=== PATIENT | female | born 1945 | race Hispanic/Latino ===

== ENCOUNTER → 2016-12-20 | Outpatient (CLI) | payer MEDICAID, MEDICARE | END | disposition home or self-care (01) | LOC: GMAM 14:01 | PROVIDERS: ATTEND Family Medicine | DX: N39.0 Urinary tract infection, site not specified (principal) ==

== ENCOUNTER 2016-12-24 17:11 | Observation (INO) | payer MEDICARE ==
--- NOTE | 2016-12-24 17:34 | ED.PDOC ---
History of Present Illness - General Chief Complaint: Neuro Symptoms/Deficits Stated Complaint: confusion & neck pain Time Seen by Provider: 12/24/16 17:12 Source: patient, RN notes reviewed, Vital Signs reviewed, family Exam Limitations: no limitations - History of Present Illness Initial Comments: Daughter reports she noticed her mother was confused this afternoon. Can't get out the words she wants to say. Patient is c/o L sided neck pain for a while, unclear how long. Patient can't remember her birthday. Daughter reports this happened once before and at that time her blood sugar was really high. Aside from the neck pain she has no other physical complaints. Timing/Duration: 1-3 hours Severity: moderate Improving Factors: nothing Worsening Factors: nothing Associated Symptoms: denies symptoms Allergies/Adverse Reactions: Allergies NO KNOWN ALLERGY Allergy (Unverified 01/09/13 00:32) Home Medications: Ambulatory Orders Amlodipine Besylate 10 mg PO DAILY 12/24/16 Glipizide 5 mg PO DAILY 12/24/16 HYDROcodone 10MG/APAP 325MG [[place] 10/325] 1 ea PO PRN PRN 12/24/16 Lidocaine 5 % EX PRN PRN 12/24/16 Metformin HCl [Metformin HCl ER] 500 mg PO BID 12/24/16 Omeprazole 20 mg PO DAILY 12/24/16 Potassium Chloride Microencaps [Klor-Con M20] 20 meq PO DAILY 12/24/16 Raloxifene HCl [Raloxifene Hydrochloride] 60 mg PO DAILY 12/24/16 SAXaglipitin [Onglyza] 5 mg PO DAILY 12/24/16 Sulfamethoxazole-Trimethoprim [Bactrim Ds 800-160 mg] 1 tab PO BID 12/24/16 Tramadol HCl 50 mg PO PRN PRN 12/24/16 Review of Systems - Review of Systems Constitutional: States: no symptoms reported, malaise, weakness. Denies: chills , diaphoresis, fever - but does have temp >101 here EENTM: States: no symptoms reported Respiratory: States: no symptoms reported. Denies: cough, orthopnea, short of breath, stridor Cardiology: States: no symptoms reported. Denies: chest pain, palpitations, syncope Gastrointestinal/Abdominal: States: no symptoms reported. Denies: abdominal pain, nausea, vomiting Genitourinary: States: no symptoms reported. Denies: dysuria, frequency, hematuria Musculoskeletal: States: neck pain - on left side Skin: States: no symptoms reported Neurological: States: other - confusion. Denies: headache, numbness, paresthesia Endocrine: States: no symptoms reported Past Medical History (General) - Patient Medical History Hx Hypertension: Yes - medicated Family Medical History - Family History Mother Family History: Unknown Physical Exam - Physical Exam General Appearance: Alert, Comfortable, No apparent distress, Well Developed, Well Groomed, Well Hydrated, Well Nourished Eye Exam: bilateral normal Ears, Nose, Throat: hearing grossly normal, normal ENT inspection, normal pharynx Neck: full range of motion, supple, tender lateral - mildly tender L side of neck Respiratory: chest non-tender, no respiratory distress, no accessory muscle use , crackles - bilateral bases Cardiovascular/Chest: no edema, no gallop, no JVD, no murmur, tachycardia Gastrointestinal/Abdominal: normal bowel sounds, non tender, soft, no organomegaly, no pulsatile mass Back Exam: normal inspection, no CVA tenderness, no vertebral tenderness Extremity: normal range of motion, non-tender, normal inspection, no pedal edema 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 She is getting a 1L NS bolus. Will give 9U of reg insulin. Patient reports that she started Bactrim DS yesterday for a urinary tract infection. She saw her doctor on Tuesday. - Results/Orders Results/Orders: Laboratory Tests 12/24/16 12/24/16 12/24/16 17:35 17:50 19:10 WBC 10.3 RBC 4.29 Hgb 11.4 L Hct 35.1 L MCV 81.7 MCH 26.5 L MCHC 32.5 L RDW 16.0 H Plt Count 294 MPV 7.9 Absolute Neuts (auto) 7.90 H Absolute Lymphs (auto) 1.60 Absolute Monos (auto) 0.60 Absolute Eos (auto) 0.00 Absolute Basos (auto) 0.10 Neutrophils % 77.3 Lymphocytes % 16.0 L Monocytes % 5.8 Eosinophils % 0.0 L Basophils % 0.9 Sodium 129 L Potassium 4.1 Chloride 98 L Carbon Dioxide 23 Anion Gap 12.1 BUN 15 Creatinine 1.02 BUN/Creatinine Ratio 14.7 POC Glucose 275 H Random Glucose 265 H Serum Osmolality 269.0 L Calcium 8.9 Total Bilirubin 0.3 AST 19 ALT 13 Alkaline Phosphatase 51 Serum Total Protein 7.2 Albumin 3.2 Globulin 4.0 H Albumin/Globulin Ratio 0.8 L Urine Color Yellow Urine Appearance Clear Urine pH 6.5 Ur Specific Van 1.020 Urine Protein 30 Urine Glucose (UA) 100 H Urine Ketones Negative Urine Blood Negative Urine Nitrite Negative Urine Bilirubin Negative Urine Urobilinogen 1.0 Ur Leukocyte Esterase Trace H Urine RBC 0 Urine WBC 1-3 Ur Epithelial Cells 1-3 Urine Bacteria 1+ Urine Mucus Trace Departure - Departure Clinical Impression: Altered mental status, Hyponatremia, Urinary tract infection Time of Disposition: 20:22 Disposition: Admit Patient Condition: Fair Home Medications: Ambulatory Orders Amlodipine Besylate 10 mg PO DAILY 12/24/16 Glipizide 5 mg PO DAILY 12/24/16 HYDROcodone 10MG/APAP 325MG [[place] 10/325] 1 ea PO PRN PRN 12/24/16 Lidocaine 5 % EX PRN PRN 12/24/16 Metformin HCl [Metformin HCl ER] 500 mg PO BID 12/24/16 Omeprazole 20 mg PO DAILY 12/24/16 Potassium Chloride Microencaps [Klor-Con M20] 20 meq PO DAILY 12/24/16 Raloxifene HCl [Raloxifene Hydrochloride] 60 mg PO DAILY 12/24/16 SAXaglipitin [Onglyza] 5 mg PO DAILY 12/24/16 Sulfamethoxazole-Trimethoprim [Bactrim Ds 800-160 mg] 1 tab PO BID 12/24/16 Tramadol HCl 50 mg PO PRN PRN 12/24/16 Decision To Admit - Decistion To Admit Decision to Admit Reason: Admit from ER
[2016-12-24] MEDS ORDERED: SODIUM CHLORIDE 0.9% 1000ML 1,000 ML IVS ONE (17:40)
--- NOTE | 2016-12-24 18:12 | RAD ---
EXAM: Chest,2 Views CLINICAL INDICATION: 71-year-old female with fever. TECHNIQUE: Two-view, PA and lateral projections of the chest were obtained. COMPARISON: 03/21/2013. FINDINGS: Stable cardiac and mediastinal silhouette. Heart size is normal. Tortuous atherosclerotic thoracic aorta. Lungs are clear without focal opacity, pneumothorax or pleural effusions. The visualized bones are within normal limits. IMPRESSION: No acute cardiopulmonary abnormalities. Electronically signed by: Priscilla Padron MD 12/24/2016 6:10 PM CDT
[2016-12-24] MEDS ORDERED: INSULIN, REG.(HUMAN) 100 U/ML VIAL IV ONE (18:20)
--- NOTE | 2016-12-24 19:08 | CT ---
EXAM DESCRIPTION: Head CLINICAL HISTORY: Altered mental status COMPARISON: None Available. TECHNIQUE: Contiguous axial images of the brain were obtained without the administration of intravenous contrast. FINDINGS: There is no acute intracranial hemorrhage or mass effect. Areas of low attenuation in the periventricular and subcortical white matter are nonspecific but suggestive of small vessel disease. There is generalized atrophy. Ventricular system is within normal limits. There is adequate balderas-white matter differentiation. There is no skull fracture. The visualized paranasal sinuses and mastoid air cells are within normal limits. IMPRESSION: No acute intracranial abnormalities. Electronically signed by: Henry Goode MD 12/24/2016 7:07 PM CDT
--- NOTE | 2016-12-24 20:19 | HP ---
SUPERVISING PHYSICIAN: Tigre Gaines MD CHIEF COMPLAINT: Confusion with neck pain. HISTORY OF PRESENT ILLNESS: Ms. Awan is a 70 year-old female who was brought to the Emergency Department by her daughter after she noticed that her mother was confused this afternoon. The daughter noticed that she could not get her words that she wanted to say. Daughter also notes that this episode occurred earlier in the week but went away without any concern. The patient was recently treated for a urinary tract infection on the , started on Bactrim with culture results showing a Klebsiella pneumonia that was sensitive to Bactrim. The daughter reports that this has happened in the past in regards to the slight confusion and at that time it was because it was because her blood sugar was really high. The patient notes that she has had neck pain for several days after waking up from sleep and notes that it is reproducible with rotation of the neck and palpitations of the muscles on the right side of the neck. Laboratory studies completed in the Emergency Department showed the patient to have a normal white count at 10.3, hemoglobin 11.4, hematocrit 35.1, differential showed to be within normal limits. Chemistries showed sodium of 129, glucose elevated at 275 and correction for glucose showed a corrected sodium of 131. Liver function studies shows to be all within normal limits. Lactic acid 2.1. BUN 15, creatinine 1.0. Repeat urine showed 100 glucose with trace of leukoesterase on dipstick with 1+ bacteria, 1 to 3 WBCs, 1 to [address] head was completed and per radiology interpretation was noted there was no acute intracranial abnormalities. She also had a chest x-ray which showed no acute cardiopulmonary abnormalities per radiology interpretation. Of note, her vital signs on admission, she was running 101.4 temperature with heart rate of 118 but saturation was 100% on lesley air at rest with a blood pressure of 131/42. The patient denies any previous fevers or any ill contacts within the last week. Given the degree of confusion state earlier in the Emergency Room and 101.4 fever with the patient being diabetic and having recently been started on Bactrim for underlying urinary tract infection, there are now concerns that the patient has failed treatment in regards to the urinary tract infection. Therefore, she will be admitted to the medical/surgical floor for continued treatment and evaluation. She was admitted in stable condition. PAST MEDICAL HISTORY: 1. Type 2 diabetes mellitus on insulin. 2. Hypertension. 3. Osteoporosis. 4. Gastroesophageal reflux disease. PAST SURGICAL HISTORY: 1. Right knee scope. 2. Cholecystectomy. 3. Left cataract removal. CURRENT MEDICATIONS: 1. Tramadol 50 mg as needed. 2. Bactrim DS, 1 tablet twice a day, started on December 20 for 7 days. 3. Onglyza 5 mg daily. 4. Raloxifene 60 mg daily. 5. Potassium chloride 20 mEq daily. 6. Omeprazole 20 mg daily. 7. Metformin 500 mg twice a day 8. [place] 10/325, 1 every 4 hours p.r.n. for pain. 9. Glipizide 5 mg daily 10. Amlodipine 10 mg daily. ALLERGIES: No known drug allergies. FAMILY HISTORY: Mother is from colon cancer and father from stomach cancer. SOCIAL HISTORY: The patient lives in [place]. 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 She is . She denies smoking or any alcohol or illicit drug use. REVIEW OF SYSTEMS: CONSTITUTIONAL: She denied any chills, diaphoresis, fever but noted a fever of 101 in the Emergency Room. HEENT: Denies any significant symptoms. RESPIRATORY: Denies cough orthopnea, shortness of breath or stridors. CARDIOVASCULAR: Denies chest pain, palpitations or syncopal episodes. GASTROINTESTINAL: Denies abdominal pain, nausea, vomiting, diarrhea or constipation. GENITOURINARY: Recently being treated for urinary tract infection, was apparently asymptomatic and currently denies any dysuria, increased frequency or hematuria. MUSCULOSKELETAL: As noted in history of present illness. Muscle pain to the left side of the neck. NEUROLOGICAL: As noted in history of present illness. She has slight confusional state that resolved without intervention. Denies headaches, numbness or paresthesias. PHYSICAL EXAMINATION: VITAL SIGNS: Initial temperature on admission was 101.4, pulse 118, blood pressure 131/42, respirations 16, 02 saturation 100% on room air. GENERAL: On admission to the medical/surgical floor, the patient was alert and oriented x3 demonstrating no confusion and she was without any obvious distress. HEENT: Tympanic membranes clear bilaterally. Oropharynx pink and moist without any lesion. NECK: No jugular venous distention noted. Neck supple, full range of motion, tender on the lateral aspect medially on the left side. CHEST: Essentially clear to auscultation, just some faint crackles to the bilateral bases. CARDIOVASCULAR: Heart regular rate and rhythm with no appreciable murmurs, rubs, or gallops. ABDOMEN: Soft, non-tender, positive bowel sounds. EXTREMITIES: No cyanosis, clubbing, or edema. NEUROLOGIC: Cranial nerves II through XII grossly intact. Facial features are symmetrical. Extraocular movements within normal limits. No nystagmus. She is alert and oriented x3 but in the Emergency Room apparently was only oriented to person and place but not date. LABORATORY: White count normal at 10.3, hemoglobin 11.4, hematocrit 35.1, platelet count 284,000, differential within normal limits. Chemistries showed sodium 129 but corrected for glucose of 275, was 131, potassium 4.1, BUN 15, creatinine 1.0. Lactic acid 2.1. Liver function studies showed to be within normal limits. Urinalysis 100 of glucose with trace of leukoesterase. MICROSCOPIC: 1+ bacteria, 1 to 2 epithelials, 1 to 3 WBC, trace mucus. MICROBIOLOGY: Blood cultures pending. She did have a urine culture on 12/20 that final culture results showed a Klebsiella pneumonia with a sensitivity patter showed sensitive to everything except ampicillin. RADIOLOGY: Chest x-ray in Emergency Room showed no acute cardiopulmonary abnormalities per radiology interpretation. She also had a CT of the head and per radiology interpretation showed no acute intracranial abnormalities. ASSESSMENT: 1. Acute confusional state possibly related to underlying urinary tract infection with patient being febrile on admission. 2. Febrile illness possibly related to failure to respond to treatment for underlying urinary tract infection that showed a Klebsiella pneumonia with patient having been started on Bactrim on the . 3. Diabetes mellitus type 2 poorly controlled on insulin therapy. 4. Hypertension. 5. Gastroesophageal reflux disease. 6. Osteoporosis. 7. Mild dehydration likely secondary to poorly controlled diabetes and poor oral intake over the last several days with underlying urinary tract infection. PLAN: The patient will be admitted to the hospital for continuation of treatment and evaluation given that she had a short episode of confusion but no acute findings on CT and patient being completely oriented when she was admitted to the medical/surgical floor. We will control her blood sugars with sliding scale, start her back on her home medication regimen once verified. We will treat with Tylenol for the fevers and closely monitor blood cultures and repeat urinalysis. We will go ahead and continue with antibiotic coverage with Bactrim starting tomorrow after we have time to evaluate and reculture urine and allow her to complete the therapy as previously ordered. Will do every 4 hours neuro checks and repeat laboratory studies in the morning as well as a chest x-ray. Will anticipate length of stay to be 2 to 3 days. Until the , we will continue to monitor the patient closely until discharge. Once discharged, the patient will need close clinical followup with her primary care physician, Dr. Patino. #[id number] [facility]
[2016-12-24] MEDS ORDERED: INSULIN, REG.(HUMAN) 100 U/ML VIAL ONE (20:21)
[2016-12-24] MEDS ORDERED: ACETAMINOPHEN 325 MG TAB PO PRN (21:15)
[2016-12-24] MEDS ORDERED: DEXTROSE 50% 25 GM/50 ML SYG IV PRN (21:15)
[2016-12-24] MEDS ORDERED: GLUCAGON INJ 1 MG VIAL SUBCU PRN (21:15)
[2016-12-24] MEDS ORDERED: KCL 20 MEQ/NS 1,000 ML IVS PRN (21:19)
[2016-12-24] MEDS ORDERED: IV SET AND CAP CHANGE INJ INJ SCH (21:30)
[2016-12-24] MEDS: SODIUM CHLORIDE 0.9% (FLUSH) 10 ML SYG IV PRN (21:55)
[2016-12-25] MEDS ORDERED: PANTOPRAZOLE SODIUM IV 40 MG VIAL IV ONE (00:32)
[2016-12-25] MEDS ORDERED: SODIUM CHLORIDE 0.9% 10 ML VIAL ONE (00:37)
[2016-12-25] MEDS ORDERED: CALCIUM CARBONATE (ANTACID) 500 MG CHEWABLE TAB PO ONE (00:38)
[2016-12-25] MEDS: SODIUM CHLORIDE 0.9% (FLUSH) 10 ML SYG IV PRN (00:41)
[2016-12-25] MEDS: CALCIUM CARBONATE (ANTACID) 500 MG CHEWABLE TAB PO PRN ×2 (00:42→11:44)
[2016-12-25] MEDS ORDERED: CYCLOBENZAPRINE HCL 5 MG TAB PO PRN (01:23)
[2016-12-25] MEDS ORDERED: HYDROcodone 10MG/APAP 325MG 1 EA TAB ONE (04:21)
[2016-12-25] MEDS: HYDROcodone 10MG/APAP 325MG 1 EA TAB PO PRN ×2 (05:22→11:40)
--- NOTE | 2016-12-25 07:21 | RAD ---
EXAM: Two view chest. INDICATION: Chest pain. COMPARISON: Chest x-ray: 12/24/2016. FINDINGS: Cardiac silhouette: Unremarkable. Linda: Unremarkable. Lobar consolidation: None. Pleural effusion: None. Pneumothorax: None. Other: None. Bones: Unremarkable. Other: None. IMPRESSION: 1. No acute cardiopulmonary process. Electronically signed by: Cleveland Betts MD 12/25/2016 7:20 AM CDT
[2016-12-25] MEDS ORDERED: [UNRECOGNIZED DRUG - OTHER] PO ONE (07:30)
[2016-12-25] MEDS ORDERED: amLODIPine BESYLATE 5 MG TAB ONE (07:30)
[2016-12-25] MEDS ORDERED: glipiZIDE 5 MG TAB PO SCH (08:00)
[2016-12-25] MEDS ORDERED: POTASSIUM CHLORIDE 20 MEQ TAB PO SCH (08:00)
[2016-12-25] MEDS ORDERED: metFORMIN XR 500 MG TAB.ER.24 PO SCH (08:00)
[2016-12-25] MEDS ORDERED: OMEPRAZOLE CAP 20 MG CAP PO SCH (08:00)
[2016-12-25] MEDS: INSULIN LISPRO 100 UNITS/ML PEN SUBCU SCH ×2 (08:17→12:52)
[2016-12-25] MEDS ORDERED: fentaNYL PATCH 25 MCG/HR 1 EA PATCH ONE (08:39)
[2016-12-25] MEDS ORDERED: METHOCARBAMOL 750 MG TAB ONE (08:39)
[2016-12-25] MEDS ORDERED: [UNRECOGNIZED DRUG - OTHER] PO SCH (09:00)
[2016-12-25] MEDS ORDERED: amLODIPine BESYLATE 5 MG TAB PO SCH (09:00)
[2016-12-25] MEDS ORDERED: NON-FORMULARY MEDICATION 1 EA MIS (Raloxifene Hcl [Raloxifene Hydrochloride] 60 MG) PO SCH (09:00)
[2016-12-25 10:47] VITALS: BP 109/64; TEMP 98.3; O2SAT 96
[2016-12-26] MEDS ORDERED: glipiZIDE 5 MG TAB PO SCH (07:00)
--- NOTE | 2016-12-27 09:27 | DS ---
SUPERVISING PHYSICIAN: Tigre Gaines MD DISCHARGE DIAGNOSIS: 1. Acute confusional state prior to admission, likely secondary to underlying urinary tract infection with patient being febrile on admission with the patient being treated previously for urinary tract infection prior to admission. 2. Febrile illness, possibly related to failure to respond to treatment for underlying urinary tract infection that showed a Klebsiella pneumoniae with patient having been been on Bactrim since the . Current urine culture showing insignificant colony growth. 3. Diabetes mellitus, type 2, poorly controlled on insulin therapy. 4. Hypertension. 5. Gastroesophageal reflux disease. 6. Osteoporosis. 7. Mild dehydration, secondary to poorly controlled diabetes and poor oral intake over the last several days with underlying urinary tract infection. 8. Possible poor medical compliance with antibiotic regimen with a component of confusion, resulting in incomplete treatment of underlying urinary tract infection. 9. Muscle strain to the sternocleidomastoid muscle, likely from poor posture while sleeping. HISTORY OF PRESENT ILLNESS: Ms. Awan is a 70-year-old, female who was brought to the Emergency Department by her daughter after she noticed that her mother was not quite herself and confused on the afternoon of admission. The daughter noticed that she could not get her words that she wanted to say. She also noted that she had an episode earlier in the week, but went away without any concern. The patient was recently treated for a urinary tract infection on the , started on Bactrim with culture results showing a Klebsiella pneumoniae that was sensitive to Bactrim. The daughter reports that this has happened in the past in regards to the slight confusion and at that time it was because it was because her blood sugar was high. The patient notes that she had had neck pain for several days after waking up from sleep and notes that it was reproducible with rotation of the neck and palpitations of the muscles on the right side of the neck. Laboratory studies completed in the Emergency Department showed the patient to have a normal white count, hemoglobin and hematocrit were normal. Differential was within normal limits. Chemistries showed sodium of 129, glucose elevated at 275 and correction for glucose showed a corrected sodium of 131. Liver function studies were all within normal limits. Lactic acid normal. BUN and creatinine within normal limits. Repeat urine showed 100 glucose with trace of leukocyte esterase on dipstick with 1+ bacteria, 1 to 3 WBCs, 1 to 3 epithelial cells. Another urine culture was sent for analysis to microbiology. CT head was completed and per radiology interpretation was noted there was no acute intracranial abnormalities. She also had a chest x-ray which showed no acute cardiopulmonary abnormalities per radiology interpretation. Of note, her vital signs on admission showed she was running 101.4 temperature with heart rate of 118, but saturation was 100% on room air at rest with a blood pressure of 131/ 42. The patient denies any previous fevers or any ill contacts within the last week. Given the degree of confusion state earlier in the Emergency Room and 101.4 fever with the patient being diabetic and having recently been started on Bactrim for underlying urinary tract infection with concerns that the patient has failed treatment in regards to the urinary tract infection, she was be admitted to the medical/surgical floor for continued treatment and evaluation. She was admitted in stable condition. LABORATORY: CBC on admission showed white count 10.3. At discharge, it was 7.5. Hemoglobin and hematocrit were fairly stable and at discharge were 10.4 and 32.5. Platelet count 253,000. Differential was within normal limits. Chemistries on admission showed sodium 129, however, glucose was 265 and corrected for the glucose, sodium was 131, patient 4.1, BUN 15, creatinine 1.0. Liver functions were within normal limits. Lactic normal at 2.1. Repeat chemistries prior to discharge showed normal electrolytes, now with potassium 4.2, glucose 136, calcium 8.5. Urinalysis on admission showed dipstick glucose 100, trace leukocyte esterase. Microscopic exam shows 1+ bacteria. Culture was sent. Serology showed she had a group A rapid strep that was negative. MICROSCOPIC: 1+ bacteria, 1 to 2 epithelials, 1 to 3 WBC, trace mucus. MICROBIOLOGY: Flu swab for A and B by PCR was negative. Urine culture preliminary showed mixed parvin, no significant colony count. She had two sets of blood cultures that remained negative at 48 hours. RADIOLOGY: Initial chest x-ray in Emergency Room per radiology interpretation showed no acute cardiopulmonary abnormalities noted. She also had a CT of the head without contrast and per radiology interpretation showed no acute intracranial abnormalities noted. Repeat x-ray after admission the morning of and per radiology interpretation showed no acute cardiopulmonary processes. HOSPITAL COURSE: Mr. Awan was admitted from the Emergency Room as noted in history of present illness for confusion, however, at time of admission to the Medical/Surgical Floor after fluids, the patient was found to be oriented and without any obvious confusion. She was placed on telemetry and had q.4h. neuro checks without significant changes. She was continued on her antibiotics as previous and had shown good clinical improvement and was felt well enough to be discharged. She was given some IV fluids for her low sodium and dehydration which did show good results. It was felt that some of the dehydration may have been contributing to the low sodium and was contributing to her confusional state, possibly exacerbated by her underlying urinary tract infection. She was found to be improved clinically and therefore was discharged to followup with her primary care provider. PLAN: The patient was discharged on 12/25/16 with instructions to have close clinical followup with her primary care provider, Dr. Patino, on 12/31/16. She was to resume her usual diabetic diet closely to keep blood sugars under control , increase her activity as tolerated, resume her home medications and take all antibiotics as prescribed to completion. She was encouraged to drink plenty of fluids to prevent dehydration and return to the hospitals should she have worsening or no improvement in her symptoms. She was discharged with new prescriptions to include: 1. Flexeril 5 mg 3 times a day as needed, #15. All other medications prior to admission were continued as ordered. At time of discharge, the patient's condition was stable. #[id number] [facility] [place]
== END 2016-12-25 12:50 | disposition home or self-care (01) ==
LOC: ER 17:11 → MS 20:18
PROVIDERS: ADMIT Nurse Practitioner Family; ATTEND Nurse Practitioner Family
DX: N39.0 Urinary tract infection, site not specified (principal); R41.0 Disorientation, unspecified; E87.1 Hypo-osmolality and hyponatremia; M54.2 Cervicalgia; R50.9 Fever, unspecified; B96.1 Klebsiella pneumoniae [K. pneumoniae] as the cause of diseases classified elsewhere; E11.65 Type 2 diabetes mellitus with hyperglycemia; I10 Essential (primary) hypertension; K21.9 Gastro-esophageal reflux disease without esophagitis; M81.0 Age-related osteoporosis without current pathological fracture; E86.0 Dehydration; S16.1XXA Strain of muscle, fascia and tendon at neck level, initial encounter; X58.XXXA Exposure to other specified factors, initial encounter; Y93.84 Activity, sleeping; Y92.003 Bedroom of unspecified non-institutional (private) residence as the place of occurrence of the external cause; Z79.84 Long term (current) use of oral hypoglycemic drugs; Z79.899 Other long term (current) drug therapy; Z90.49 Acquired absence of other specified parts of digestive tract; Z98.42 Cataract extraction status, left eye; Z80.0 Family history of malignant neoplasm of digestive organs
CPT/HCPCS: 36415 ×2; 36416; 70450; 71020 ×2; 80048; 80053; 81001; 82948 ×4; 83605; 85025 ×2; 87040 ×2; 87070; 87086; 87502; 87880; 94760; 96361; 96374; 96375; 97116; 97162; 99284; G0378; G8978; G8979; J3480; J7030

== ENCOUNTER → 2017-06-28 | Outpatient (CLI) | payer MEDICARE | END | disposition home or self-care (01) | LOC: GMAM 14:48 | PROVIDERS: ATTEND Family Medicine | DX: N39.0 Urinary tract infection, site not specified (principal) ==

== ENCOUNTER 2017-07-01 13:05 | Emergency (ER) | payer MEDICARE ==
[2017-07-01 15:08] VITALS: O2SAT 95
[2017-07-01] MEDS ORDERED: SODIUM CHLORIDE 0.9% 1000ML 1,000 ML IVS ONE ×2 (15:18→15:23)
[2017-07-01 16:06] VITALS: BP 143/54; TEMP 99.6
--- NOTE | 2017-07-01 17:04 | ED.PDOC ---
History of Present Illness - General Chief Complaint: Diabetic Complaint Stated Complaint: hyperglycemia Time Seen by Provider: 07/01/17 15:18 Source: patient Exam Limitations: no limitations - History of Present Illness Initial Comments: Patient presents with a complaint of hyperglycemia. She took her blood sugar at home several hours ago and reports it was in the high 400s. She took prescribed Brovan but decided to come to the E.R. She currently has no symptoms. Timing/Duration: 4-6 hours Severity: mild Improving Factors: nothing Worsening Factors: nothing Associated Symptoms: denies symptoms Allergies/Adverse Reactions: Allergies NO KNOWN ALLERGY Allergy (Unverified 01/09/13 00:32) Home Medications: Ambulatory Orders Amlodipine Besylate 10 mg PO DAILY 12/24/16 Glipizide 5 mg PO DAILY 12/24/16 HYDROcodone 10MG/APAP 325MG [[facility] 10/325] 1 ea PO PRN PRN 12/24/16 Lidocaine 5 % EX PRN PRN 12/24/16 Metformin HCl [Metformin HCl ER] 500 mg PO BID 12/24/16 Omeprazole 20 mg PO DAILY 12/24/16 Potassium Chloride Microencaps [Klor-Con M20] 20 meq PO DAILY 12/24/16 Raloxifene HCl [Raloxifene Hydrochloride] 60 mg PO DAILY 12/24/16 SAXaglipitin [Onglyza] 5 mg PO DAILY 12/24/16 Sulfamethoxazole-Trimethoprim [Bactrim Ds 800-160 mg] 1 tab PO BID 12/24/16 Tramadol HCl 50 mg PO PRN PRN 12/24/16 Cyclobenzaprine HCl [Flexeril] 5 mg PO TID PRN #15 tab 12/25/16 Review of Systems - Review of Systems Constitutional: States: no symptoms reported EENTM: States: no symptoms reported Respiratory: States: no symptoms reported Cardiology: States: no symptoms reported Gastrointestinal/Abdominal: States: no symptoms reported Genitourinary: States: no symptoms reported Musculoskeletal: States: no symptoms reported Skin: States: no symptoms reported Neurological: States: no symptoms reported Endocrine: States: see HPI Hematologic/Lymphatic: States: no symptoms reported Past Medical History (General) - Patient Medical History Hx Seizures: No Hx Stroke: No Hx Dementia: No Hx Asthma: No Hx of COPD: No Hx Congestive Heart Failure: No Hx Pacemaker: No Hx Hypertension: Yes Hx Diabetes: Yes Hx MRSA: No Surgical History: cholecystectomy, other - Vaccination History Hx Tetanus, Diphtheria Vaccination: No Hx Influenza Vaccination: Yes Hx Pneumococcal Vaccination: Yes - Social History Hx Alcohol Use: No Hx Substance Use: No Hx Physical Abuse: No Hx Emotional Abuse: No Family Medical History - Family History Mother Family History: Unknown Physical Exam - Physical Exam General Appearance: Alert Respiratory: lungs clear Cardiovascular/Chest: regular rate, rhythm Gastrointestinal/Abdominal: normal bowel sounds, non tender, soft Neurologic: no motor/sensory deficits, alert, normal mood/affect Progress - Progress Progress: 07/01/17 17:02 NS IV one lite x one, blood sugar was then 223. She had a UTI but already has Bactrim prescribed for that and will pick it up from the pharmacy today. Small amount of ketones in the urine but patient says she has not eaten today. Also, anion gap 10.9. Laboratory Tests 07/01/17 07/01/17 07/01/17 13:20 13:52 13:52 WBC 10.7 RBC 4.26 Hgb 11.3 L Hct 34.3 L MCV 80.5 L MCH 26.5 L MCHC 33.0 RDW 14.8 H Plt Count 241 MPV 8.1 Absolute Neuts (auto) 8.10 H Absolute Lymphs (auto) 2.00 Absolute Monos (auto) 0.50 Absolute Eos (auto) 0.00 Absolute Basos (auto) 0.10 Neutrophils % 75.7 Lymphocytes % 18.4 L Monocytes % 4.9 Eosinophils % 0.0 L Basophils % 1.0 Sodium Potassium Chloride Carbon Dioxide Anion Gap BUN Creatinine BUN/Creatinine Ratio POC Glucose 265 H Random Glucose Serum Osmolality Calcium Urine Color Yellow Urine Appearance Clear Urine pH 6.0 Ur Specific [place] 1.020 Urine Protein Negative Urine Glucose (UA) 500 H Urine Ketones 15 H Urine Blood Trace-intact H Urine Nitrite Negative Urine Bilirubin Negative Urine Urobilinogen 0.2 Ur Leukocyte Esterase Small H Urine RBC 10-20 H Urine WBC 10-20 H Ur Epithelial Cells 0 Urine Bacteria 1+ 07/01/17 07/01/17 13:52 16:58 WBC RBC Hgb Hct MCV MCH MCHC RDW Plt Count MPV Absolute Neuts (auto) Absolute Lymphs (auto) Absolute Monos (auto) Absolute Eos (auto) Absolute Basos (auto) Neutrophils % Lymphocytes % Monocytes % Eosinophils % Basophils % Sodium 132 L Potassium 3.9 Chloride 100 L Carbon Dioxide 25 Anion Gap 10.9 L BUN 14 Creatinine 0.82 BUN/Creatinine Ratio 17.1 POC Glucose 223 H Random Glucose 280 H Serum Osmolality 275.1 Calcium 9.2 Urine Color Urine Appearance Urine pH Ur Specific [place] Urine Protein Urine Glucose (UA) Urine Ketones Urine Blood Urine Nitrite Urine Bilirubin Urine Urobilinogen Ur Leukocyte Esterase Urine RBC Urine WBC Ur Epithelial Cells Urine Bacteria Departure - Departure Clinical Impression: Hyperglycemia Disposition: Discharge to Home or Self Care Condition: Good Departure Forms: ED Discharge - Pt. Copy, Patient Portal Self Enrollment Diet: resume usual diet Activity: increase activity as tolerated Referrals: Mark Patino MD [Primary Care Provider] - 1-2 Weeks Home Medications: Ambulatory Orders Amlodipine Besylate 10 mg PO DAILY 12/24/16 Glipizide 5 mg PO DAILY 12/24/16 HYDROcodone 10MG/APAP 325MG [[facility] 10/325] 1 ea PO PRN PRN 12/24/16 Lidocaine 5 % EX PRN PRN 12/24/16 Metformin HCl [Metformin HCl ER] 500 mg PO BID 12/24/16 Omeprazole 20 mg PO DAILY 12/24/16 Potassium Chloride Microencaps [Klor-Con M20] 20 meq PO DAILY 12/24/16 Raloxifene HCl [Raloxifene Hydrochloride] 60 mg PO DAILY 12/24/16 SAXaglipitin [Onglyza] 5 mg PO DAILY 12/24/16 Sulfamethoxazole-Trimethoprim [Bactrim Ds 800-160 mg] 1 tab PO BID 12/24/16 Tramadol HCl 50 mg PO PRN PRN 12/24/16 Cyclobenzaprine HCl [Flexeril] 5 mg PO TID PRN #15 tab 12/25/16 Additional Instructions: Follow up with your primary care physician for further monitoring of your blood sugar. Take your medications as prescribed.
== END 2017-07-01 17:15 | disposition home or self-care (01) ==
LOC: ER 13:05
DX: E11.65 Type 2 diabetes mellitus with hyperglycemia (principal); I10 Essential (primary) hypertension; Z79.899 Other long term (current) drug therapy; Z79.84 Long term (current) use of oral hypoglycemic drugs
CPT/HCPCS: 36415; 36416; 80048; 81001; 82948; 85025; 87086; J7030

== ENCOUNTER → 2017-08-16 | Outpatient (CLI) | payer MEDICARE | END | disposition home or self-care (01) | LOC: GMAM 14:36 | PROVIDERS: ATTEND Family Medicine | DX: N39.0 Urinary tract infection, site not specified (principal) ==

== ENCOUNTER → 2018-04-18 | Outpatient (CLI) | payer MEDICARE ==
--- NOTE | 2018-04-21 08:39 | MAM ---
EXAM DESCRIPTION: 3D Screening BILATERAL : Digital Mammography. CLINICAL HISTORY: 72 years Female SCREENING . No complaints. No family history breast cancer. Childbirth. Postmenopausal. No HRT. Right breast biopsy. COMPARISON: Screening mammogram bilateral digital 05/19/2015 Report from prior examination also reviewed. TECHNIQUE: Bilateral CC and MLO projection full-field images, 3-D tomosynthesis digital mammographic technique. CAD not utilized. FINDINGS: The breast parenchymal density pattern is: Scattered areas of fibroglandular density. No skin thickening or nipple retraction. Bilateral axillary lymph nodes. Bilateral vascular calcifications. 1-2 groups of microcalcifications in the upper outer quadrant of the middle third of the left breast approximately 8 cm from the nipple. Not as well-demonstrated on the prior study. No new focal, stellate mass or density, focal asymmetry , and no suspicious microcalcifications right breast. Stable mammograms compared to prior study, taking into account differences in mammographic technique. IMPRESSION: BI-RADS CATEGORY: 0 - INCOMPLETE- Need additional imaging evaluation. FOLLOW-UP: Recall for additional imagin-D spot magnification of the region of interest in the middle third of the upper-outer quadrant left breast in the LM and CC projections. Bilateral 3-D tomosynthesis full field LM images. Targeted left breast ultrasound if indicated by diagnostic images. Written communication concerning the IMPRESSION and Follow-up, will be mailed to the patient and referring health care provider. Electronically signed by: Yuval Natarajan MD 04/21/2018 8:37 AM CDT
== END ==
LOC: MAMMO 13:30
PROVIDERS: ATTEND Family Medicine
DX: Z12.31 Encounter for screening mammogram for malignant neoplasm of breast (principal)

== ENCOUNTER → 2018-05-29 | Outpatient (CLI) | payer MEDICARE ==
--- NOTE | 2018-05-30 09:30 | US ---
EXAM DESCRIPTION: Breast,Left: Ultrasound CLINICAL HISTORY: 72 yearsFemale abnormal calcifications left breast COMPARISON: Digital diagnostic mammogram left breast on this visit. Bilateral screening digital breast tomosynthesis 04/18/2018. TECHNIQUE: Transcutaneous scanning of the lateral left breast utilizing balderas-scale and Doppler modes. Scanning performed by the clinical psychology teacher and Dr. Natarajan. FINDINGS: Scanning of the lateral left breast with emphasis on the 300 clock position of the breast 8 cm from the nipple. Heterogeneous fibroglandular and fatty echotexture. There is an slightly lobulated and irregular hypoechoic mass measuring 5 x 3.3 mm. It is at the border of a layer of fatty tissue and fibroglandular tissue. Heterogeneous echogenicity, parallel orientation, but with minimal posterior shadowing. Nonvascular. No parenchymal edema or distinct cysts in the adjacent soft tissues. No overlying skin changes. No large calcifications. IMPRESSION: 1. BI-RADS CATEGORY: 4 - SUSPICIOUS. SUB - CATEGORY 4A: LOW SUSPICION FOR MALIGNANCY. 2. Please refer to digital diagnostic left breast mammography and report on this visit. Surgical evaluation is recommended. Options include wire localization and open biopsy, stereotactic biopsy, or ultrasound-guided biopsy. The FINDINGS and the FOLLOW-UP plan were reviewed in person with the patient after the examination. Written communication explaining the IMPRESSION and FOLLOW-UP will be mailed to the patient and referring care provider. CRITICAL COMMUNICATION: The critical value was discussed directly by phone with Dr. Montiel's associate, Ms. Caitlin Vital, N.P. at approximately 1310, on May 29, 2018 Electronically signed by: Yuval Natarajan MD 05/30/2018 9:29 AM CDT
--- NOTE | 2018-05-30 13:35 | MAM ---
EXAM DESCRIPTION: 3D Diagnostic, Left: Digital Mammography CLINICAL HISTORY: 72 yearsFemaleABN MAMMO abnormal microcalcifications seen in the upper outer quadrant of the middle third of the left breast approximately 8 cm from the nipple.. COMPARISON: Bilateral screening digital breast tomosynthesis 04/18/2018. . TECHNIQUE: Left LM projection full-field images, digital mammographic tomosynthesis technique. Full field 2-D left MLO image. Spot magnification upper lateral left breast in the CC and LM projections. CAD not utilized. FINDINGS: The breast parenchymal density pattern is: Scattered areas of fibroglandular density. No skin thickening or nipple retraction . Left breast vascular calcifications. Left breast axillary lymph nodes. Heterogeneous groups of calcifications are noted which are nonvascular. Heterogeneity of the shapes and sizes and pleomorphism is noted. Possible soft tissue mass associated with the calcifications. Ultrasound: Scanning of the lateral left breast with emphasis on the 300 clock position of the breast 8 cm from the nipple. Heterogeneous fibroglandular and fatty echotexture. There is an slightly lobulated and irregular hypoechoic mass measuring 5 x 3.3 mm. It is at the border of a layer of fatty tissue and fibroglandular tissue. Heterogeneous echogenicity, parallel orientation, but with minimal posterior shadowing. Nonvascular. No parenchymal edema or distinct cysts in the adjacent soft tissues. No overlying skin changes. No large calcifications. IMPRESSION: 1. BI-RADS Category 4: SUSPICIOUS - Subcategory 4B: Moderate Suspicion For Malignancy. 2. Tissue diagnosis is recommended if there are no clinical contraindications. The FINDINGS and follow up were discussed in person with the patient following the examination. Written communication explaining the IMPRESSION and follow-up, will be mailed to the patient and referring health care provider. CRITICAL COMMUNICATION: The critical value was discussed directly by phone with Dr. Montiel's associate, Ms. Caitlin Vital, N.P. at approximately 1310, on May 29, 2018. Electronically signed by: Yuval Natarajan MD 05/30/2018 1:33 PM CDT
== END ==
LOC: US 08:08
PROVIDERS: ATTEND Nurse Practitioner Family
DX: R92.8 Other abnormal and inconclusive findings on diagnostic imaging of breast (principal)
CPT/HCPCS: 76641; 77065; G0279

== ENCOUNTER → 2018-06-14 | Outpatient (CLI) | payer MEDICARE ==
--- NOTE | 2018-06-14 10:21 | OP ---
DATE OF PROCEDURE: 06/14/18 PREOPERATIVE DIAGNOSIS: 1. Abnormal mammogram with mass and calcifications at the 3 o'clock position in the left breast. POSTOPERATIVE DIAGNOSIS: 1. Abnormal mammogram with mass and calcifications at the 3 o'clock position in the left breast. PROCEDURE: 1. Sonographically guided needle core biopsy, left breast mass at 3 o'clock. SURGEON: Harjit Miller MD. LEAF CONDITIONER HELPER: None. ANESTHESIA: Local infiltration of 1% lidocaine. INDICATION: The patient is a 73-year-old female who on routine mammography was found to have new indeterminate calcifications and a small mass at the 3 o' clock position in the left breast. She was brought to the Ultrasound Suite today for sonographically guided biopsy of the mass with the plan if this turns out to be benign that we would probably proceed with a needle localized excision of the calcifications at a later date. FINDINGS: Several good cores were taken with the biopsy needle identified within the mass by ultrasound. PROCEDURE: The patient was placed in the supine position, turned with her left side up somewhat. The mass was identified laterally in the left breast. The medial and inferior aspect of the breast was prepped with Betadine and draped. Local infiltration of anesthesia was obtained with 1% lidocaine and then the lesion was identified with a 25-gauge needle. A stab wound was then made with a 15 blade and the biopsy needle was introduced. Multiple cores were taken as noted with the biopsy needle known to be within the mass. The specimens were sent for pathological evaluation. Hemostasis was obtained with pressure. A single simple 4-0 Nylon suture was placed to close the stab wound. Sterile pressure dressing was applied. The patient tolerated the procedure well. Estimated blood loss was less than 5 mL. Followup appointment is scheduled for next week. #[id number] [facility]
--- NOTE | 2018-06-14 10:54 | US ---
EXAM DESCRIPTION: Biopsy/Needle Guidance: Ultrasound. CLINICAL HISTORY: 73 years Female LEFT BREAST MASS COMPARISON: Diagnostic ultrasound of the left breast on 05/29/2018. TECHNIQUE: The procedure was performed by Dr. Miller. Repeat ultrasound localized mass at the 300 position of the left breast 8 cm from the nipple.. Sterile preparation. Sterile ultrasound guidance during needle passes. FINDINGS: Again noted is 5 x 3 mm hypoechoic nodule with posterior shadowing at the 300 clock position of the left breast, 8 cm from the nipple. Multiple images show the echogenic core biopsy needle passing through the lesion in orthogonal axes. IMPRESSION: Excess focal, ultrasound-guided needle core biopsy of mass in the lateral left breast. Adequate core samples were obtained. Pathology examination at remote facility, results pending. Electronically signed by: Yuval Natarajan MD 06/14/2018 10:53 AM CDT
== END ==
LOC: US 07:16
PROVIDERS: ATTEND Surgery
DX: N63.20 Unspecified lump in the left breast, unspecified quadrant (principal)

== ENCOUNTER → 2018-06-20 | Outpatient (CLI) | payer MEDICARE ==
--- NOTE | 2018-06-20 12:18 | RAD ---
EXAM DESCRIPTION: Chest,2 Views CLINICAL HISTORY: BREAST CA COMPARISON: Previous study December 25, 2016 TECHNIQUE: PA/lateral FINDINGS: There is no acute appearing cardiac or pulmonary abnormality. Heart size is normal with normal pulmonary vascularity. No pleural effusion or pneumothorax. Lungs are clear with no consolidating infiltrate. Lateral view shows intact sternum and old wedge compression in the mid T-spine. Density behind the heart is consistent with a hiatal hernia. IMPRESSION: No acute process is identified in the chest. Electronically signed by: James Dan MD 06/20/2018 12:17 PM CDT
== END ==
LOC: LAB.O 10:26
PROVIDERS: ATTEND Surgery
DX: C50.812 Malignant neoplasm of overlapping sites of left female breast (principal)

== ENCOUNTER → 2018-06-21 | Outpatient (CLI) | payer MEDICARE ==
--- NOTE | 2018-06-21 15:25 | NM ---
EXAM DESCRIPTION: Bone Scan, Whole Body CLINICAL HISTORY: BREAST CA. Left breast. Positive biopsy June 2018. Right knee arthroplasty 2014. Patient fell 2 days ago now pain in right knee. COMPARISON: Radiographs of the bilateral knees 03/31/2012. TECHNIQUE: Patient injected with 26.2 mCi of technetium 99M MDP IV. Delayed gamma camera images from various planes were obtained 3 hr after injection. FINDINGS: Photopenic regions in the distal right femur and proximal right tibia consistent with right total knee arthroplasty. Activity in the distal femur abutting the component in the proximal tibia abutting the components appears symmetric and not acute. Diffuse activity in the distal left femur and proximal left tibia most likely arthrosis. Focal activity in the mid right femur but not the soft tissue. Focal activity in the lateral left mid foot. Activity in the left great toe most likely degenerative change. Probable degenerative activity in the inferior lumbar spine the right thoracic spine at the T7-T8 level. Symmetric activity in the hips, pelvis, and shoulder girdles. Increased activity in the maxilla and mandible on the anterior projections may be related to dental abnormality or recent procedure. Symmetric soft tissue activity in the remainder of the face and neck soft tissues. IMPRESSION: 1. Photopenic activity in the right knee associated with total knee arthroplasty. Activity in the distal femur and proximal tibia abutting these components is nonspecific and could be normal for this patient or indicate mild component loosening. Not likely to represent acute bony injury. Correlate with radiographs of the right knee. 2. Focal mild uptake in the mid right femoral shaft is concerning and metastatic disease cannot be excluded. Recommend radiographic correlation. 3. Activity in the lateral left foot could represent acute inflammatory process or stress injury. Correlate with history and plain radiographs. 4. Probable degenerative activity in the left knee, bilateral feet, lower lumbar spine, mid left thoracic spine. Is there history of inflammatory dental process or recent dental procedure? Electronically signed by: Yuval Natarajan MD 06/21/2018 3:23 PM CDT
== END ==
LOC: NM 10:00
PROVIDERS: ATTEND Surgery
DX: C50.919 Malignant neoplasm of unspecified site of unspecified female breast (principal)

== ENCOUNTER → 2018-06-26 | Outpatient (CLI) | payer MEDICARE ==
--- NOTE | 2018-06-27 10:08 | RAD ---
EXAM DESCRIPTION: Femur,Right CLINICAL HISTORY: 73 years Female, ABN X-RAY COMPARISON: None. FINDINGS: No acute fracture. There is orthopedic hardware in the distal femur. Total right knee prosthesis. Deformity of the distal most femur is consistent with old healed fracture. Bones appear osteopenic. No dislocation at the hip or knee. No orthopedic hardware complication. IMPRESSION: No acute fracture or dislocation. Total right knee arthroplasty. Electronically signed by: James Dan MD 06/27/2018 10:06 AM CDT
--- NOTE | 2018-06-27 10:32 | RAD ---
EXAM DESCRIPTION: Foot,Left 3 Views CLINICAL HISTORY: ABN XRAY COMPARISON: None. TECHNIQUE: AP, lateral, and oblique images left foot. FINDINGS: Overall bone density is decreased. Minimal narrowing of the IP joint spaces. Soft tissue swelling abutting the medial left great toe metatarsophalangeal joint and the lateral fifth metatarsal phalangeal joint. No definite fractures. Small plantar calcaneal spur. IMPRESSION: No fracture or dislocation. Decreased bone density. Soft tissue swelling abutting the first and fifth metatarsophalangeal joints. Narrowing of the IP joints of the toes. Electronically signed by: Yuval Natarajan MD 06/27/2018 10:30 AM CDT
== END ==
LOC: RAD 16:53
PROVIDERS: ATTEND Surgery
DX: R93.6 Abnormal findings on diagnostic imaging of limbs (principal); C50.812 Malignant neoplasm of overlapping sites of left female breast; Z96.651 Presence of right artificial knee joint

== ENCOUNTER 2018-07-17 05:51 | Inpatient (IN) | payer MEDICARE ==
--- NOTE | 2018-07-14 11:46 | RAD ---
EXAM DESCRIPTION: Chest,2 Views CLINICAL HISTORY: pre op COMPARISON: Previous study June 20, 2018 TECHNIQUE: PA/lateral FINDINGS: There is no acute appearing cardiac or pulmonary abnormality. Prominent hiatal hernia behind the heart is thought to account for masslike density in this area. Heart size is normal with normal pulmonary vascularity. No pleural effusion or pneumothorax. Lungs are clear with no consolidating infiltrate. Lateral view shows intact sternum and prominent spurring in the T-spine. IMPRESSION: No acute process is identified in the chest. Electronically signed by: James Dan MD 07/14/2018 11:44 AM CDT
--- NOTE | 2018-07-14 11:47 | RAD ---
EXAM DESCRIPTION: Ankle,Right 2 Views CLINICAL HISTORY: 73 years, Female, rule out right ankle fx COMPARISON: None. TECHNIQUE: AP/lateral/oblique of the right ankle FINDINGS: Intact medial and lateral malleolus. There is mild soft tissue swelling laterally more than medially. Intact proximal metatarsals. Intact dome of the talus. Lateral view shows no evidence of fracture of the body of the talus or calcaneus. Prominent plantar calcaneal spurring is seen. Bones appear osteopenic with prominent trabecular pattern. IMPRESSION: Negative for fracture or dislocation. Electronically signed by: James Dan MD 07/14/2018 11:46 AM CDT
--- NOTE | 2018-07-14 13:16 | US ---
EXAM DESCRIPTION: Venous,Lower Extremity RT CLINICAL HISTORY: rule out dvt COMPARISON: None Available. TECHNIQUE: Right lower extremity venous duplex FINDINGS: Doppler evaluation of the right lower extremity deep veins was performed. Normal color flow is seen in the common femoral, superficial femoral, profunda femoral and greater saphenous veins. Normal flow is seen in the popliteal vein and veins below the knee in the calf. Normal venous compressibility and flow augmentation. Mild edematous changes in the subcutaneous fat of the right lower extremity. IMPRESSION: Negative for evidence of deep venous thrombosis on right lower extremity venous Doppler sonogram. Electronically signed by: James Dan MD 07/14/2018 1:14 PM CDT
[2018-07-17] MEDS ORDERED: SODIUM CHL 0.9% 100ML MINI-BAG 100 ML IVPB ONE (07:48)
[2018-07-17] MEDS ORDERED: LACTATED RINGERS 1,000 ML ONE (07:48)
[2018-07-17] MEDS ORDERED: ceFAZolin SODIUM 1 GM VIAL ONE (07:48)
[2018-07-17] MEDS ORDERED: fentaNYL CITRATE INJ 50 MCG/ML AMP ONE (08:07)
[2018-07-17] MEDS ORDERED: MIDAZOLAM INJ 2 MG/2 ML VIAL ONE (08:07)
[2018-07-17] MEDS ORDERED: ACETAMINOPHEN IV 1000MG 100 ML ONE (08:07)
[2018-07-17] MEDS ORDERED: LACTATED RINGERS 1,000 ML BAG IV ONE (08:10)
[2018-07-17] MEDS ORDERED: DEXAMETHASONE INJ 10 MG/ML VIAL IV ONE (10:00)
[2018-07-17] MEDS ORDERED: ePHEDrine SULF 50 MG/ML IV ONE (10:00)
[2018-07-17] MEDS ORDERED: KETOROLAC TROMETHAMINE INJ 30 MG/ML VIAL IV ONE (10:00)
[2018-07-17] MEDS ORDERED: SODIUM CHLORIDE 0.9% 50 ML VIAL INJ ONE (10:00)
[2018-07-17] MEDS ORDERED: raNITIdine HCL INJ 25 MG/ML VIAL IV ONE (10:00)
[2018-07-17] MEDS ORDERED: PHENYLEPHRINE INJ 1ML 10 MG/ML VIAL IV ONE (10:00)
[2018-07-17] MEDS ORDERED: METOCLOPRAMIDE HCL INJ 10 MG/2 ML VIAL IV ONE (10:00)
[2018-07-17] MEDS ORDERED: LIDOCAINE 1% 10 ML VIAL INJ ONE (10:00)
[2018-07-17] MEDS ORDERED: PROPOFOL 200 MG/20 ML VIAL IV ONE (10:00)
--- NOTE | 2018-07-17 10:31 | HP ---
CHIEF COMPLAINT: Biopsy-prove carcinoma of the left breast. HISTORY OF PRESENT ILLNESS: The patient is a 73-year-old female who on routine mammography was found to have a left breast mass at the 3 o'clock position. She underwent a sonographically guided needle core biopsy which revealed an invasive carcinoma. She had a negative metastatic workup and she is admitted today for left modified radical mastectomy after the risks, benefits and alternatives to the procedure were discussed and accepted including partial mastectomy with or without radiation therapy and sentinel node biopsy. PAST MEDICAL HISTORY: 1. Diabetes mellitus. 2. Gastroesophageal reflux disease. 3. Hypertension. PAST SURGICAL HISTORY: 1. Right total knee replacement. 2. Cholecystectomy. 3. Right cataract extraction. 4. Previous right breast biopsies in the distant past CURRENT MEDICATIONS: 1. Metformin. 2. Amlodipine. 3. Omeprazole. 4. Benazepril. 5. Raloxifene. 6. Onglyza. 7. Tresiba. 8. Occasional pain medication. ALLERGIES: NO KNOWN DRUG ALLERGIES. FAMILY HISTORY: Positive for carcinoma of the colon in her mother. SOCIAL HISTORY: The patient is . No history of alcohol or drug abuse. She is retired. REVIEW OF SYSTEMS: There has been no history of weight loss, change in her bowel habits, shortness of breath or chest pain. She has no upper respiratory symptoms. She denies urinary tract symptoms. She denies melena, hematochezia or hematemesis. PHYSICAL EXAMINATION: GENERAL: The patient is awake, alert, cooperative, in no acute distress. VITAL SIGNS: The patient is currently afebrile, normotensive. HEENT: Sclerae nonicteric. Mucous membranes moist. She has very poor dentition. NECK: Without adenopathy, specifically, there is no supraclavicular or axillary adenopathy. BACK: Without CVA tenderness. CHEST: Equal breath sounds bilaterally. HEART: Regular rhythm. BREASTS: There are no discrete masses. There is a well-healed biopsy scar of the left breast. ABDOMEN: Soft, nontender without mass or megaly. PELVIC/RECTAL: Deferred. EXTREMITIES: The patient has swelling in her left leg after a fall several weeks ago. X-rays reveal no acute fractures and no DVT was identified on ultrasound. LABORATORY: Urine revealed too numerous to count white cells and bacteria. Culture reveals Klebsiella pneumoniae which is pansensitive specifically for first generation cephalosporins. EKG shows sinus tachycardia. Creatinine 0.74 , potassium 3.7, liver functions within normal limits. Preoperative hemoglobin was 8.9 and 9.1 this morning. Normal differential. Platelet count 401,000. Chest x-ray was clear. [facility][id number] [facility]
[2018-07-17] MEDS ORDERED: ELECTROLYTE-A 1,000 ML IVS ONE (11:10)
[2018-07-17] MEDS ORDERED: HYDROmorphone HCL INJ 2 MG/ML VIAL ONE (11:43)
[2018-07-17] MEDS ORDERED: ONDANSETRON INJ 4 MG/2 ML VIAL IV PRN (12:58)
[2018-07-17] MEDS ORDERED: ELECTROLYTE A IVS ONE (13:07)
[2018-07-17] MEDS ORDERED: DEXTROSE 5% 100 ML BAG IVPB ONE ×2 (13:27→13:53)
[2018-07-17] MEDS ORDERED: DEXTROSE 5% 100ML 100 ML IVPB ONE ×2 (13:28→13:54)
[2018-07-17] MEDS ORDERED: LACTATED RINGERS 700 ML IVS ONE (14:20)
[2018-07-17] MEDS ORDERED: GLUCAGON INJ 1 MG VIAL SUBCU PRN (15:26)
[2018-07-17] MEDS ORDERED: DEXTROSE 50% 25 GM/50 ML SYG IV PRN (15:26)
[2018-07-17] MEDS: ceFAZolin SODIUM 2 GRAMS PREMI 2 GM in PREMIX BAG 1 BAG IVPB SCH ×2 (15:45→22:53)
[2018-07-17] MEDS ORDERED: ceFAZolin SODIUM 2 GRAMS PREMI 50 ML IVPB ONE ×2 (15:51→20:22)
[2018-07-17] MEDS: INSULIN LISPRO 100 UNITS/ML PEN SUBCU SCH ×2 (16:47→21:11)
[2018-07-17] MEDS: metFORMIN XR 500 MG TAB.ER.24 PO SCH (17:00)
[2018-07-17] MEDS: LACTATED RINGERS 1,000 ML IVS PRN (18:06)
[2018-07-17] MEDS ORDERED: metFORMIN XR 500 MG TAB.ER.24 PO SCH (21:00)
--- NOTE | 2018-07-17 21:10 | OP ---
DATE OF PROCEDURE: 07/17/18 PREOPERATIVE DIAGNOSIS: 1. Biopsy proven carcinoma of the left breast. POSTOPERATIVE DIAGNOSIS: 1. Biopsy proven carcinoma of the left breast. SURGICAL PROCEDURE: 1. Left modified radical mastectomy. SURGEON: Harjit Miller M.D. PRESSED OR BLOWN GLASS WORKER: None. ANESTHESIA: General laryngeal mask anesthesia. INDICATION FOR SURGERY: The patient is a 73 year-old female who on routine mammography was found to have a suspicious mass. Sonography guided needle core biopsy revealed an invasive carcinoma. She has had a metastatic workup which was negative, although there were some questions due to the osteoporosis in her lower extremities especially, however eventually the risks, benefits, and alternatives to surgical options were discussed and accepted by the patient. She chose to proceed today with left modified radical mastectomy. FINDINGS AT TIME OF PROCEDURE: The nerves were identified. Otherwise pathology is pending. DESCRIPTION OF PROCEDURE: After adequate general laryngeal mask anesthesia was obtained, the patient was prepped and draped in the usual sterile manner in the supine position. When this was done a surgical time out was taken. Then the breast which had been marked preoperatively was marked with an elliptical incision using the marking pen. The superior incision was then made with a sharp knife. Dissection was carried down through the skin into the subcutaneous tissue using electrocautery. At this point Hunter thyroid grasping forceps were placed on the superior skin margin and the superior flap was taken to the sternal border medially to the pectoral fascia superiorly and into the axilla laterally using electrocautery and blunt dissection. Hemostasis was noted to be adequate. A moist sponge was placed under the flap and it was left. The inferior incision and flap were then taken in the same manner. When this was done, the breast was dissected inferiorly and then laterally into the axilla. The axillary node dissection was then performed with the axillary vein being in the superior margin and the thoracodorsal bundle and the long nerve broderick as the posterior margin. The specimen was then sent from the field. The wound was irrigated copiously with saline. Hemostasis was noted to be adequate. Two drains were placed, one for the chest wall and one for the axilla through the inferior flap and sutured in place with #3-0 nylon sutures. When this was done, the skin edges were approximated with a running #3-0 Vicryl suture and then the wound was irrigated through the incision and aspirated through the drains. The skin edges were approximated with a skin stapler. Sterile pressure dressing was applied. The patient was awakened and taken to the recovery room in good and stable condition. Estimated blood loss was approximately 250 to 300 mL. All sponge, needle and instrument counts were correct. #[id number] [facility]
[2018-07-17] MEDS: MORPHINE SULFATE INJ 10 MG/ML VIAL IV PRN ×2 (22:02→22:29)
[2018-07-17] MEDS: INSULIN DEGLUDEC 50 UNIT SC SCH (22:58)
[2018-07-18] MEDS ORDERED: ceFAZolin SODIUM 2 GRAMS PREMI 50 ML IVPB ONE ×4 (04:16→19:36)
[2018-07-18] MEDS ORDERED: PANTOPRAZOLE SODIUM TAB 40 MG PO ONE (04:17)
[2018-07-18] MEDS: LACTATED RINGERS 1,000 ML IVS PRN (05:07)
[2018-07-18] MEDS: ceFAZolin SODIUM 2 GRAMS PREMI 2 GM in PREMIX BAG 1 BAG IVPB SCH ×3 (06:35→22:57)
[2018-07-18] MEDS: PANTOPRAZOLE SODIUM TAB 40 MG PO SCH (06:35)
[2018-07-18] MEDS: INSULIN LISPRO 100 UNITS/ML PEN SUBCU SCH ×4 (07:57→20:54)
[2018-07-18] MEDS: metFORMIN XR 500 MG TAB.ER.24 PO SCH ×2 (07:58→17:20)
[2018-07-18] MEDS: POTASSIUM CHLORIDE 20 MEQ TAB PO SCH (07:59)
--- NOTE | 2018-07-18 08:18 | CONS ---
SUPERVISING PHYSICIAN: Tigre Gaines MD REASON FOR CONSULTATION: Status post left radical mastectomy. HISTORY OF PRESENT ILLNESS: Ms. Awan is a 73 year-old female patient who was found to have a left breast mass on mammography. Following her mammography, she underwent sonographically needle core biopsy which revealed she had invasive carcinoma. Metastatic workup was shown to be negative and today she was admitted for a left modified radical mastectomy performed by Dr. Miller. Ms. Awan was seen immediately in postoperative state. She was found to be in stable condition, had no intraoperative complications and was stable at time of exam. PAST MEDICAL HISTORY: 1. Type 2 diabetes mellitus on insulin. 2. Hypertension. 3. Osteoporosis. 4. Gastroesophageal reflux disease. PAST SURGICAL HISTORY: 1. Right total knee replacement. 2. Cholecystectomy. 3. Right cataract extraction. 4. Previous right breast biopsy. CURRENT MEDICATIONS: 1. Lotensin 20 mg daily. 2. Tresiba 50 units subcu at bedtime. 4. Amlodipine 10 mg daily. 5. Tramadol 50 mg as needed for pain. 6. Fulton 10/325, one p.r.n. as needed for pain. 7. Raloxifene 60 mg daily. 8. Onglyza 5 mg daily. 9. Potassium chloride 20 mEq daily. 10. Omeprazole 20 mg p.o. daily. 11. Metformin 1000 mg b.i.d. ALLERGIES: No known drug allergies. FAMILY HISTORY: Mother from colon cancer. Father from stomach cancer. SOCIAL HISTORY: The patient is . She lives in [place]. She denies alcohol or illicit drug use. She is retired. REVIEW OF SYSTEMS: CONSTITUTIONAL: She denied fevers, chills, diaphoresis. HEENT: Denied nasal congestion, ear ache, sore throats, headaches. RESPIRATORY: Denies cough, shortness of breath, striders. CARDIAC: Denies chest pain, palpitations, syncopal episodes. GASTROINTESTINAL: Denies abdominal pain, nausea or vomiting, diarrhea or constipation. GENITOURINARY: Recently treated for a urinary tract infection that was asymptomatic. She currently denies any dysuria, increase frequency or hematuria. NEUROLOGICAL: Denies ataxia, headaches, numbness, paresthesias, seizures or focal deficits. PHYSICAL EXAMINATION: VITAL SIGNS: Temperature 97.6, pulse 89, blood pressure 111/65, respirations 16 , saturation 99% on 2 liters nasal cannula at rest. Admission weight 84.5 kg. HEENT: Tympanic membranes are clear bilaterally. Pharynx pink and moist without any lesions. NECK: Supple, non-tender, full range of motion, no jugular venous distention. CHEST: Lung sounds clear, just slightly diminished towards the basis. There is a pressure dressing in place status post mastectomy with BREANNE drains showing serous fluid. HEART: Regular rate and rhythm without any appreciable murmurs, rubs, or gallops. ABDOMEN: Obese, soft, non-tender, positive bowel sounds. EXTREMITIES: Without cyanosis, clubbing, or edema. NEUROLOGIC: She is alert and oriented x 3. Facial features are symmetrical. Extraocular movements within normal limits. There was no notable nystagmus. Cranial nerves II through XII are grossly intact. LABORATORY: Preoperative CBC showed a white count of 8,600 with initial hemoglobin of 8.9, hematocrit 29.3 with repeat hemoglobin and hematocrit this morning prior to surgery showing hemoglobin of 9.1 and hematocrit 29.4 with RBC indices showing a microcytic hyperchromic presentation with a platelet count of 401,000. Differential shows to be without a left shift. Chemistries preoperative showed normal electrolytes. BUN 13, creatinine 0.74. Initial glucose of 237 and preoperative this morning was 87 with liver functions showing to all be within normal limits. Urinalysis - she did have a urine on the that showed 100 of glucose with trace intact blood, moderate leukoesterase. Microscopic showing 0 to 1 RBCs with 10 to 20 WBCs, 3 to 5 epithelials, 2+ bacteria. Repeat urinalysis this morning before surgery showed trace intact blood, small amount of leukoesterase , 1 to 3 RBCs, 5 to 10 WBCs, 1 to 3 epithelials, rare bacteria. MICROBIOLOGY: Urine culture showed final results with a Klebsiella pneumonia that was sensitive to all but ampicillin with the patient having been on Cefazolin preoperatively. RADIOLOGY: Preoperative chest x-ray per radiology interpretation showed no acute processes identified within the chest. There was also note of a lower extremity ultrasound which was negative for deep venous thrombosis on the right lower extremity. She also had an ankle x-ray on 07/14/18 that showed negative for fracture or dislocation. ASSESSMENT: 1. Status post day zero for a left modified radical mastectomy for biopsy- proven carcinoma of the left breast. 2. Acute urinary tract infection with Klebsiella showing to be pansensitive to all but ampicillin with patient being treated with cephalosporins preoperatively. 3. History of type 2 diabetes mellitus on insulin therapy. 4. Hypertension. 5. Osteoporosis. 6. Gastroesophageal reflux disease. PLAN: We will follow the patient postoperatively to manage her blood sugars and watch her blood pressure. We will resume her home medications once they have been updated and verified as appropriate once the patient is showing adequate oral intake. Will continue with cefazolin to treat an underlying urinary tract infection. She will be on DVT prophylaxis per protocol. We will defer wound management and pain management and fluids to Dr. Miller postoperatively. Will anticipate her length of stay to probably be around 2 to 3 days. Until clinically stable enough for discharge to continue with outpatient management we will continue to monitor and treat as needed. #[id number] [facility]
[2018-07-18] MEDS: ENOXAPARIN SODIUM 40 MG/0.4 ML SYG SUBCU SCH (08:35)
[2018-07-18] MEDS: OMEPRAZOLE CAP 20 MG CAP PO SCH (08:36)
[2018-07-18] MEDS: amLODIPine BESYLATE 5 MG TAB PO SCH (08:36)
[2018-07-18] MEDS: LISINOPRIL 10 MG TAB PO SCH (08:36)
[2018-07-18] MEDS ORDERED: NON-FORMULARY MEDICATION 1 EA MIS (Amlodipine Besylate [Amlodipine Besylate] 10 MG) PO SCH (09:00)
[2018-07-18] MEDS ORDERED: POTASSIUM CHLORIDE 20 MEQ TAB PO SCH (09:00)
[2018-07-18] MEDS ORDERED: BENAZEPRIL HCL 20 MG PO SCH (09:00)
[2018-07-18] MEDS: HYDROcodone 5MG/APAP 325MG 1 EA TAB PO PRN ×3 (11:06→20:33)
[2018-07-18] MEDS: NON-FORMULARY MEDICATION 1 EA MIS (Raloxifene Hcl [Raloxifene Hydrochloride] 60 MG) PO SCH (12:16)
[2018-07-18] MEDS: SAXAGLIPTIN 5 MG PO SCH (12:17)
[2018-07-18] MEDS: INSULIN DEGLUDEC 50 UNIT SC SCH (20:57)
--- NOTE | 2018-07-18 22:29 | PN ---
DATE: 07/18/18 SUPERVISING PHYSICIAN: Tigre Gaines M.D. SUBJECTIVE: The patient this morning is alert. Notes her pain has been controlled. She has had no nausea or vomiting. Tolerating oral intake. She has actually been ambulating a couple of times this morning. She remains afebrile. OBJECTIVE: VITAL SIGNS: Temperature 97.6, pulse 90, blood pressure 136/74, respirations 17, satting 100% on nasal cannula at 2 liters. I's and O's show a negative balance of 2293 with 1150 in, 3443 out. She has had 1 bowel movement. Weight is 84.5 kg. GENERAL: The patient is alert. Appears to be comfortable in no acute distress. CHEST: Lungs were clear to auscultation. Dressing remains in place over the chest which is clean and dry. J-P drains times 2 are showing continued drainage but decreasing amounts and more serosanguinous today. HEART: Regular rate and rhythm. ABDOMEN: Obese but soft, non-tender. Positive bowel sounds. EXTREMITIES: Without any clubbing, cyanosis or edema. NEUROLOGIC: She is alert and oriented times 3. LABORATORY: CBC this morning shows white count 11,900 with hemoglobin 8.1, hematocrit 26.7. RBC indices indicate a microcytic hypochromic presentation with platelet count 350,000. Electrolytes show to be normal with potassium 4, BUN 12, creatinine 0.6. Blood sugars have been between 86 and 279 with calcium 8.4. No additional labs. MICROBIOLOGY: Urine culture from admission showing Klebsiella pneumoniae with a repeat culture pending. RADIOLOGY: No additional radiographic studies today. ASSESSMENT: 1. Status post day #1 for a left modified radical mastectomy for biopsy-proven carcinoma of the left breast performed by Dr. Miller. 2. Acute urinary tract infection with culture results showing Klebsiella pneumoniae with is pansensitive to all but ampicillin with patient having been treated with cephalosporins preoperatively and continued with Cefazolin. 3. History of type 2 diabetes mellitus on insulin therapy showing stable. 4. Microcytic hypochromic anemia likely iron deficiency versus chronic illness. Need further close workup in the outpatient setting. 5. Hypertension showing to be stable. 6. Osteoporosis, chronic. 7. Gastroesophageal reflux disease, monitoring. PLAN: Will continue to follow the patient as she continues to recover. I resumed her home medications including Tresiba this morning and will continue on her regular schedule starting tomorrow night. The patient is encouraged to ambulate. She does remain on DVT prophylaxis per protocol and wound management per Dr. Miller. She continues on Cefazolin for underlying urinary tract infection. Will await said cultures to target antibiotic therapy. Anticipate discharge in the next 1 to 2 days. Until then continue to monitor and treat as needed. #[id number] [facility]
[2018-07-19] MEDS: HYDROcodone 5MG/APAP 325MG 1 EA TAB PO PRN ×4 (00:28→15:48)
[2018-07-19] MEDS: PANTOPRAZOLE SODIUM TAB 40 MG PO SCH (06:08)
[2018-07-19] MEDS: ceFAZolin SODIUM 2 GRAMS PREMI 2 GM in PREMIX BAG 1 BAG IVPB SCH (06:39)
[2018-07-19] MEDS: INSULIN LISPRO 100 UNITS/ML PEN SUBCU SCH ×3 (08:02→17:18)
[2018-07-19] MEDS: OMEPRAZOLE CAP 20 MG CAP PO SCH (08:42)
[2018-07-19] MEDS: NON-FORMULARY MEDICATION 1 EA MIS (Raloxifene Hcl [Raloxifene Hydrochloride] 60 MG) PO SCH (08:42)
[2018-07-19] MEDS: SAXAGLIPTIN 5 MG PO SCH (08:42)
[2018-07-19] MEDS: POTASSIUM CHLORIDE 20 MEQ TAB PO SCH (08:42)
[2018-07-19] MEDS: LISINOPRIL 10 MG TAB PO SCH (08:42)
[2018-07-19] MEDS: amLODIPine BESYLATE 5 MG TAB PO SCH (08:42)
[2018-07-19] MEDS: metFORMIN XR 500 MG TAB.ER.24 PO SCH (08:42)
[2018-07-19] MEDS: ENOXAPARIN SODIUM 40 MG/0.4 ML SYG SUBCU SCH (08:50)
[2018-07-19] MEDS: ceFAZolin SODIUM 2 GM in SODIUM CHLORIDE 0.9% 100ML 100 ML IVPB SCH ×2 (08:51→15:00)
[2018-07-19 11:37] VITALS: O2SAT 94
--- NOTE | 2018-07-19 14:31 | DS ---
FINAL DIAGNOSIS: Biopsy-prove carcinoma of the left breast pending pathology report. SURGICAL PROCEDURE: Left modified radical mastectomy. HISTORY OF PRESENT ILLNESS: The patient is a 73-year-old female who on routine mammography was found to have a left breast mass at the 3 o'clock position. She underwent a sonographically guided needle core biopsy which revealed an invasive carcinoma. She had a negative metastatic workup and she was admitted today for left modified radical mastectomy after the risks, benefits and alternatives to the procedure were discussed and accepted including partial mastectomy with or without radiation therapy and sentinel node biopsy. LABORATORY: On the first postoperative day, the patient's white count was 11, 000, hemoglobin 8.1, platelet count 350, 85% neutrophils. Pathology report is pending. HOSPITAL COURSE: The patient was admitted to the Surgical Suite where she underwent the left modified radical mastectomy, recovered and then transferred to the Floor. By the first postoperative evening, she was tolerating liquids. Her hemoglobin was noted to be stable at 8.2 postoperatively and then 8.1 the next morning. Her IV was discontinued. The first postoperative morning, she was advanced to a diabetic diet. She continued to do well with oral pain medication. She was continued on her antibiotics because her preoperative urinalysis revealed Klebsiella greater than 100,000 colonies which was pansensitive. By the second postoperative day, she was tolerating a regular diet, had had a bowel movement and was taking oral pain medication. In the early afternoon of the second postoperative day, she is discharged home. CONDITION ON DISCHARGE: Good. PROGNOSIS: Good pending the pathology report. DISPOSITION: The patient is to followup in my office in 5 days, Tuesday at 3 PM. She is discharged one her regular diet. She is told she can ambulate, but is to do no lifting or exercise with her left arm. She is to keep her dressing dry and intact. Home health with [facility] is consulted to do daily dressing changes and to milk her BREANNE drains on a daily basis. A prescription for Keflex 500 mg, #10, 1 q.8h. is called into [facility] and she is given a prescription for hydrocodone 5 mg 1 or 2 every 4 to 6 hours p.r.n. pain , #30 given. She is instructed to call me if she develops nausea, vomiting, fever, chills, increasing abdominal pain or has other questions. #[id number] [facility]
[2018-07-19 14:57] VITALS: BP 135/75; TEMP 98.4
[2018-07-19] MEDS ORDERED: ceFAZolin SODIUM 1 GM VIAL ONE (15:23)
[2018-07-19] MEDS ORDERED: SODIUM CHLORIDE 0.9% 100ML 100 ML IVPB ONE (15:23)
== END 2018-07-19 16:30 | disposition home health service (06) | DRG 580 ==
LOC: AMB 05:51 → MS 14:30
PROVIDERS: ADMIT Surgery; ATTEND Surgery
PROC: 07B60ZX Excision of Left Axillary Lymphatic, Open Approach, Diagnostic (ICD-10-PCS; 2018-07-17)
PROC: 0HTU0ZZ Resection of Left Breast, Open Approach (ICD-10-PCS; principal; 2018-07-17 09:46)
DX: C50.412 Malignant neoplasm of upper-outer quadrant of left female breast (principal); N39.0 Urinary tract infection, site not specified; B96.1 Klebsiella pneumoniae [K. pneumoniae] as the cause of diseases classified elsewhere; D50.9 Iron deficiency anemia, unspecified; M81.0 Age-related osteoporosis without current pathological fracture; E11.9 Type 2 diabetes mellitus without complications; I10 Essential (primary) hypertension; K21.9 Gastro-esophageal reflux disease without esophagitis; E66.9 Obesity, unspecified; Z79.84 Long term (current) use of oral hypoglycemic drugs; Z79.899 Other long term (current) drug therapy; Z96.651 Presence of right artificial knee joint; Z79.891 Long term (current) use of opiate analgesic; Z68.34 Body mass index [BMI] 34.0-34.9, adult

== ENCOUNTER → 2018-08-02 | Outpatient (CLI) | payer MEDICARE ==
--- NOTE | 2018-08-02 10:42 | US ---
EXAM DESCRIPTION: Soft Tissue,Head/Neck: ULTRASOUND. CLINICAL HISTORY: R22.1. "Large lump" left lateral neck. Supraclavicular area. " [place] many years but now getting larger." COMPARISON: Ultrasound soft tissue head and neck 03/02/2012. TECHNIQUE: Transcutaneous scanning: Zhou-scale and Doppler modes. FINDINGS: Relatively homogeneous oval-shaped soft tissue mass in the adipose tissue above the left clavicle. More homogeneous than the surrounding fatty tissue but similar architecture. Intermittent echogenic capsule. Dimensions are 7.0 x 6.2 x 2.5 cm. Nonvascular. No other distinct solid mass or cyst. No large calcification or parenchymal edema. No abnormal vascularity. IMPRESSION: Findings most consistent with 7 cm lipoma in the adipose tissue superior to the left clavicle. Relatively homogeneous echoes with no vascularity. No cyst or abscess collection seen. Electronically signed by: Yuval Natarajan MD 08/02/2018 10:41 AM CDT
== END ==
LOC: US 08:52
PROVIDERS: ATTEND Surgery
DX: R22.1 Localized swelling, mass and lump, neck (principal)

== ENCOUNTER → 2018-08-11 | Outpatient (CLI) | payer MEDICARE | LOC: YCHH 10:32 | PROVIDERS: ATTEND General Practice | DX: N39.0 Urinary tract infection, site not specified (principal); D64.9 Anemia, unspecified; R50.9 Fever, unspecified ==

== ENCOUNTER 2018-10-19 06:00 | Day surgery (SDC) | payer MEDICARE ==
--- NOTE | 2018-10-17 12:53 | RAD ---
EXAM DESCRIPTION: Chest,2 Views CLINICAL HISTORY: PREOP COMPARISON: Previous study July 14, 2018 TECHNIQUE: PA/lateral FINDINGS: Mass behind the heart is consistent small hiatal hernia. On the frontal view, ill-defined increased density in the right lower lung zone is unchanged from previous study. No corresponding infiltrate on the lateral view. This is likely overlying soft tissue. Heart size is normal with prominent central pulmonary arteries suggesting pulmonary hypertension. No pleural effusion or pneumothorax. Lungs are otherwise clear with no air bronchograms to suggest consolidating infiltrate. Lateral view shows intact sternum and T-spine. No pulmonary infiltrate on the lateral view. IMPRESSION: No acute process is identified in the chest. No change compared to previous study. Electronically signed by: James Dan MD 10/17/2018 12:52 PM [facility]
[2018-10-19] MEDS ORDERED: LIDOCAINE 1% 10 ML VIAL INJ ONE (07:00)
[2018-10-19] MEDS ORDERED: PROPOFOL 200 MG/20 ML VIAL IV ONE (07:00)
[2018-10-19] MEDS ORDERED: LACTATED RINGERS 1,000 ML ONE (09:01)
[2018-10-19] MEDS ORDERED: ceFAZolin SODIUM 1 GM VIAL ONE (09:01)
[2018-10-19] MEDS ORDERED: SODIUM CHL 0.9% 100ML MINI-BAG 100 ML IVPB ONE (09:01)
[2018-10-19 09:17] VITALS: TEMP 98.6
[2018-10-19] MEDS ORDERED: SODIUM BICARBONATE VIAL 50 MEQ/50 ML VIAL ONE (09:28)
[2018-10-19] MEDS ORDERED: SODIUM CHLORIDE 0.9% 50 ML VIAL ONE (09:28)
[2018-10-19] MEDS ORDERED: LIDOCAINE 1% 50 ML VIAL INJ ONE (09:28)
[2018-10-19] MEDS ORDERED: HEPARIN SODIUM 100 U/ML 5 ML SYG IV ONE (09:28)
[2018-10-19] MEDS ORDERED: MIDAZOLAM INJ 2 MG/2 ML VIAL ONE (09:32)
[2018-10-19] MEDS ORDERED: fentaNYL CITRATE INJ 50 MCG/ML AMP ONE (09:32)
[2018-10-19] MEDS ORDERED: KETAMINE HCL 100 MG/ML VIAL ONE (09:34)
--- NOTE | 2018-10-19 11:37 | OP ---
DATE OF PROCEDURE: 10/19/18 PREOPERATIVE DIAGNOSIS: 1. Carcinoma of the left breast pending chemotherapy. POSTOPERATIVE DIAGNOSIS: 1. Carcinoma of the left breast pending chemotherapy. PROCEDURE: 1. Insertion of right subclavian venous access port using fluoroscopy. SURGEON: Harjit Miller MD. CHIEF AIRPORT GUIDE: None. ANESTHESIA: Local infiltration of 1% lidocaine with bicarb and IV sedation by Anesthesia. INDICATION: The patient is a 73-year-old female who had a mastectomy last fall. Her tumor turned out to be HER2/rafa positive and she has seen Dr. Leonard Burton for oncologic consultation and they are to begin chemotherapy next week. She was brought to the Surgical Suite today for insertion of right subclavian venous access port under IV sedation and local anesthesia after the risks, benefits and alternatives to the procedure were discussed and accepted. It is also noted the patient had a dirty urine and she has been given IV Ancef. Culture is pending. She will be started on Bactrim on discharge. FINDINGS: The subclavian vein was found easily with both the 22-gauge needle and the 18-gauge thin wall needle, however, there were multiple attempts to get the wire to go down to subclavian rather than up and right IJ. This took a total of two sticks and multiple manipulations. The final fluoroscopic view revealed the catheter in good position in the several. PROCEDURE: After the patient was brought to the Surgical Suite and placed in the supine position, she was prepped and draped in the usual sterile manner. A surgical time-out was taken noting that the right infraclavicular area was marked with my initials. At this point, IV sedation was performed. The infraclavicular area was infiltrated with local anesthesia and then the 22-gauge needle was introduced under the clavicle and advanced until venous blood was obtained. The 18-gauge thin wall needle was directed in the same manner. The guidewire was introduced. It passed easily to approximately 27 cm. At that point, a towel was placed over the field and fluoroscopy was used to identify the guidewire which was in the internal jugular, so multiple attempts were made to back it up and get it to go inferiorly. However, this failed. Finally, the guidewire was removed. A repeat of the 22-gauge needle, followed by the 18- gauge needle again obtained venous blood easily. Guidewire was passed. Again, it passed in the inferior vena cava. Finally, both turning the head sharply and pulling down on the shoulder allowed me to advance the guidewire in the superior vena cava. At this point, port pocket was formed in the usual manner with local anesthesia, sharp knife, cautery and blunt dissection. The catheter was then tunneled from the port pocket to the insertion site and placed under a towel. The port was introduced into the port pocket and sutured in place with two 3-0 Prolene simple sutures. The subcutaneous tissues were then reapproximated at the port pocket with interrupted 3-0 Vicryl sutures. At this point, the catheter was cut to appropriate length and cleaned with heparinized saline. The dilator introducer was introduced over the guidewire and the guidewire and dilator were removed. The catheter was then introduced without significant difficulty and the introducer was then removed. At this point, the port was accessed with a Cordero needle. It was easily aspirated and flushed, first with heparinized saline and then with heplock. The Cordero needle was then removed. A towel was placed over the field and fluoroscopy was used to identify the catheter in good position. At this point, the skin edges were approximated with 4-0 Vicryl subcuticular sutures, benzoin and Steri-Strips. Sterile dressings were applied. The patient was awakened and taken to the Ambulatory Unit in stable condition. A stat portable chest x-ray was ordered. The patient tolerated the procedure well. Estimated blood loss was less than 25 mL. All sponge, needle and instrument counts were correct. #[id number] [facility]
--- NOTE | 2018-10-19 11:39 | RAD ---
EXAM DESCRIPTION: Chest,1 View: CR/DR/XR. CLINICAL HISTORY: 73 years Female PORT PLACEMENT COMPARISON: 2 view chest 10/17/2018. TECHNIQUE: ONE VIEW PORTABLE. AP 1126 hours, upright position. FINDINGS: Venous access device placed via right subclavian vessel with the tip in the mid SVC. No mediastinal widening or pneumothorax. No pleural effusion. Bilateral perihilar peribronchial wall cuffing and other senescent densities with decreasing density seen in the right lung base compared to the prior study. Cardiopulmonary structures are not prominent. IMPRESSION: Placement of VAD in customary position. No radiographic evidence of complications. Resolving density in the right lung base. Report called to Nataliia at outpatient surgery at 1135 hours on 10/19/2018. Electronically signed by: Yuval Natarajan MD 10/19/2018 11:38 AM [facility]
[2018-10-19 12:10] VITALS: BP 144/60; O2SAT 92
== END 2018-10-19 12:25 | disposition home or self-care (01) ==
LOC: AMB 06:00
PROVIDERS: ATTEND Surgery
DX: C50.912 Malignant neoplasm of unspecified site of left female breast (principal); E11.9 Type 2 diabetes mellitus without complications; K21.9 Gastro-esophageal reflux disease without esophagitis; I10 Essential (primary) hypertension; Z96.651 Presence of right artificial knee joint; Z80.0 Family history of malignant neoplasm of digestive organs; Z79.84 Long term (current) use of oral hypoglycemic drugs; Z79.899 Other long term (current) drug therapy
CPT/HCPCS: 00532; 36415; 36416; 36561; 71045; 71046; 76000; 80048; 81001; 82948; 85025; 87086; A4216; C1788; J0690; J1642; J2250; J3010; J3490; J7050; J7120

== ENCOUNTER → 2019-06-26 | Outpatient (CLI) | payer MEDICARE ==
--- NOTE | 2019-06-28 18:50 | MAM ---
EXAM DESCRIPTION: 3D Screening BILATERAL : Digital Mammography. CLINICAL HISTORY: 74 years Female ANNUAL SCREENING . No complaints. Personal history of right breast cancer with mastectomy.. Lifetime risk of developing breast cancer (Tyrer-Cuzick model)(%): Not Calculated due to personal history of breast cancer COMPARISON: Bilateral screening digital breast tomosynthesis 04/18/2018. Diagnostic left breast tomosynthesis and directed ultrasound 05/29/2018. Positive left breast needle core biopsy 06/14/2018.. TECHNIQUE: Right breast and MLO projection full-field images, digital tomosynthesis mammographic technique right breast digital 2-D full-field MLO images. CAD not available for tomosynthesis or 2-D images. FINDINGS: Right breast parenchymal density pattern is: Scattered areas of fibroglandular density. No skin thickening or nipple retraction. Injection port for VAD is superimposed over the medial posterior right breast. Vascular calcifications. Right breast axillary lymph nodes. Small solitary microcalcifications. No new focal, stellate mass or density, focal asymmetry , and no suspicious microcalcifications right breast Stable mammograms compared to prior study. IMPRESSION: Benign exam. BIRAD CATEGORY: 2 BENIGN FINDINGS. RECOMMENDATIONS: FOLLOW UP: Routine digital bilateral mammographic screening, one year interval from June 2019. Written communication explaining the IMPRESSION and follow-up, will be mailed to the patient and referring health care provider. According to the [employer], yearly mammograms are recommended starting at age 40 and continuing as long as a woman is in good health. Any breast change noted on a breast self-exam should be reported promptly to the patient's healthcare provider. Breast MRI is recommended for women with an approximately 20-25% or greater lifetime risk of breast cancer, including women with a strong family history of breast or ovarian cancer and women who have been treated for Hodgkin's disease. A negative mammographic report should not delay tissue diagnosis in patients with significant clinical history or physical findings. Extremely dense breast tissue limits the sensitivity of digital mammography. Electronically signed by: Yuval Natarajan MD 06/28/2019 6:48 PM CDT
== END ==
LOC: MAMMO 13:00
PROVIDERS: ATTEND Nurse Practitioner Family
DX: Z12.31 Encounter for screening mammogram for malignant neoplasm of breast (principal)

== ENCOUNTER → 2019-07-26 | Outpatient (CLI) | payer MEDICARE, OTHER ==
--- NOTE | 2019-07-26 18:55 | NM ---
EXAM DESCRIPTION: Bone Scan, Whole Body: Nuclear Medicine CLINICAL HISTORY: 74 years Female MALIGNANT NEOPLASM LEFT BREAST recent complications with dental procedures COMPARISON: None. TECHNIQUE: Patient injected with 26.2 mCi of technetium 99M MDP IV. Delayed gamma camera images from various planes were obtained 3 hr after injection. FINDINGS: Focal radiopharmaceutical activity in the mid shaft of the right femur. This may be related to proximal femoral stem of right total knee arthroplasty. Activity noted around the arthroplasty with photopenia corresponding to the arthroplasty components. No other abnormal activity in the long bones and flat bones or skull. Activity in the left knee bilateral ankles and mid feet most likely related to arthrosis. Focal activity in the anterior mid sternum possibly at the sternomanubrial junction. Also increased activity in the bilateral sternoclavicular joints. Activity in the mid thoracic spine on the posterior images. Minimal scoliosis. Increased activity in the maxillary and mandibular dental regions. This corresponds with clinical history. 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 Activity in the wrist and hands most likely related to arthrosis. Normal soft tissue activity in the urinary bladder. Injection site right antecubital. Also the nasal region. IMPRESSION: 1. Activity in the mid femoral shaft may correspond to proximal and of right total knee arthroplasty femoral stem. Activity also noted in the distal right femur and proximal right tibia around the arthroplasty components. Correlate femoral activity with plain radiographs of the arthroplasty components and femur. 2. Activity in the ankles feet wrists and hands shoulders most likely related to arthrosis. Activity in the maxillary and mandibular dental regions consistent with clinical history. Electronically signed by: Yuval Natarajan MD 07/26/2019 6:53 PM CDT
== END ==
LOC: NM 08:30
PROVIDERS: ATTEND Internal Medicine Hematology & Oncology
DX: C50.812 Malignant neoplasm of overlapping sites of left female breast (principal)

== ENCOUNTER 2020-01-20 00:25 | Emergency (ER) | payer MEDICARE, OTHER ==
[2020-01-20] MEDS ORDERED: MORPHINE SULFATE INJ 10 MG/ML VIAL IV ONE (01:29)
[2020-01-20] MEDS ORDERED: ONDANSETRON INJ 4 MG/2 ML VIAL IV ONE (01:30)
[2020-01-20] MEDS ORDERED: SODIUM CHLORIDE 0.9% 1000ML 1,000 ML IVS ONE (01:49)
--- NOTE | 2020-01-20 03:23 | CT ---
EXAM DESCRIPTION: CT ABDOMEN AND PELVIS WITH CONTRAST CLINICAL HISTORY: ruq pain and nausea COMPARISON: None Available. TECHNIQUE: CT of the abdomen and pelvis performed following IV administration of iodinated contrast. FINDINGS: Lung Bases: The visualized lung bases are clear. Bones: Degenerative endplate spondylosis the spine and bilateral joint space narrowing. Abdomen: Liver: The liver has normal size and density. No intrahepatic biliary dilatation. Possible punctate focus of air in the periportal region may represent minimal intrahepatic biliary air and may be related to prior cholecystectomy. Gallbladder: No calcified gallstones. Spleen, Pancreas, and Adrenal Glands: The spleen, pancreas, and adrenal glands are unremarkable. Kidneys: No hydronephrosis or obstructing calculus. Benign small left renal cyst. Vasculature: Aortoiliac atherosclerosis. IVC is unremarkable. The portal vein is patent. The proximal visceral and renal arteries are patent. Stomach: Moderate hiatal hernia. Other: No free intraperitoneal air. Small fat-containing umbilical hernia. No free fluid or lymphadenopathy. Pelvis: Bladder: Small amount of air in the urinary bladder may be related to recent catheterization. Bowel: No dilated loops of large or small bowel. Moderate amount stool. Scattered diverticula of the colon. Appendix: Normal appendix. Pelvis: Small bilateral fat-containing hernias. Uterus is not enlarged. IMPRESSION: 1. No acute inflammatory or obstructive process identified. 2. Diverticulosis without evidence of acute diverticulitis. 3. Moderate hiatal hernia. This exam was performed according to our departmental dose-optimization program, which includes automated exposure control, adjustment of the mA and/or kV according to patient size and/or use of iterative reconstruction technique. Electronically signed by: Jasen Blair 01/20/2020 3:22 AM CDT
[2020-01-20] MEDS ORDERED: MAGNESIUM SULFATE PREMIX 4GM 4 GM in PREMIX BAG 1 BAG IVPB ONE (03:41)
[2020-01-20] MEDS ORDERED: PANTOPRAZOLE SODIUM TAB 40 MG PO ONE (03:43)
[2020-01-20] MEDS ORDERED: AMOXICILLIN & POT CLAVULANATE 875 MG TAB PO ONE (03:43)
[2020-01-20] MEDS ORDERED: ALUM & MAG HYDROX-SIMETHICONE 30 ML, LIDOCAINE VISCOUS 2% 15 ML PO ONE ×2 (03:43)
[2020-01-20] MEDS ORDERED: SUCRALFATE 1 GM/10 ML 1 GM UD PO ONE (03:43)
[2020-01-20] MEDS ORDERED: LIDOCAINE HCL 2% (MOUTH-THROAT) 15 ML UD ONE (03:48)
[2020-01-20] MEDS ORDERED: ALUM & MAG HYDROX-SIMETHICONE 30 ML UD ONE (03:48)
[2020-01-20] MEDS ORDERED: MAGNESIUM SULFATE PREMIX 4GM 50 ML IVPB ONE (03:49)
--- NOTE | 2020-01-20 03:49 | ED.PDOC ---
History of Present Illness - General Chief Complaint: Problem Stated Complaint: right side pain, recent dx of uti Time Seen by Provider: 01/20/20 00:25 Source: patient Exam Limitations: no limitations - History of Present Illness Initial Comments: The patient is a 74-year-old female presented emergency room secondary to right upper abdominal pain present for the last 12 hours. The patient was recently treated for urinary tract infection with her primary care doctor. No fevers. No urinary symptoms currently. She does take chronic pain medications. Mild nausea but no vomiting. No syncope. The patient has had a cholecystectomy in the past. The patient does take multiple medications that can irritate her stomach including multiple diabetes medications as well as anti-inflammatories. She denies any diarrhea. Timing/Duration: other - 12 hours Severity: moderate Improving Factors: nothing Worsening Factors: nothing Associated Symptoms: loss of appetite, malaise, nausea/vomiting Allergies/Adverse Reactions: Allergies NO KNOWN ALLERGY Allergy (Verified 10/17/18 14:31) Home Medications: Ambulatory Orders Amlodipine Besylate 10 mg PO DAILY 12/24/16 Metformin HCl [Metformin Hydrochloride E] 1,000 mg PO BID 12/24/16 Omeprazole 20 mg PO DAILY 12/24/16 Potassium Chloride Microencaps [Klor-Con M20] 20 meq PO DAILY 12/24/16 Raloxifene HCl [Raloxifene Hydrochloride] 60 mg PO DAILY 12/24/16 SAXaglipitin [Onglyza] 5 mg PO DAILY 12/24/16 Benazepril HCl [Lotensin] 20 mg PO DAILY 07/14/18 Insulin Degludec [Tresiba Flextouch] 50 unit SC BEDTIME 07/14/18 HYDROcodone 5MG/APAP 325MG [Gregory 5/325] 1 - 2 ea PO Q4H PRN #40 tab 07/19/18 Amoxicillin & Pot Clavulanate [Augmentin Tab] 875 mg PO BID #14 tab 01/20/20 Celecoxib 200 mg PO BID 01/20/20 Famotidine 20 mg PO DAILY #30 tab 01/20/20 Magnesium Oxide (mg Supplement [Magnesium Oxide] 400 mg PO BID #30 cap 01/20/20 Semaglutide [Ozempic] 2 mg SC WKLY 01/20/20 Sucralfate Tab [Carafate Tab] 1 gm PO QID #60 tab 01/20/20 Review of Systems - Review of Systems Constitutional: States: no symptoms reported EENTM: States: no symptoms reported Respiratory: States: no symptoms reported Cardiology: States: no symptoms reported Gastrointestinal/Abdominal: States: abdominal pain, nausea Genitourinary: States: no symptoms reported Musculoskeletal: States: no symptoms reported Skin: States: no symptoms reported Neurological: States: anxiety Endocrine: States: no symptoms reported Hematologic/Lymphatic: States: no symptoms reported All other Systems: No Change from Baseline Past Medical History (General) - Patient Medical History Hx Seizures: No Hx Stroke: No Hx Dementia: No Hx Asthma: No Hx of COPD: No Hx Congestive Heart Failure: No Hx Pacemaker: No Hx Hypertension: Yes Hx Diabetes: No Hx Cancer: No Hx Hepatitis C: No Hx MRSA: No - Vaccination History Hx Tetanus, Diphtheria Vaccination: No Hx Influenza Vaccination: No Hx Pneumococcal Vaccination: Yes - Social History Hx Tobacco Use: No Hx Alcohol Use: No Hx Substance Use: No Hx Substance Use Treatment: No Hx Depression: No Hx Physical Abuse: No Hx Emotional Abuse: No - Female History Patient is a Female of Child Bearing Age (10 -59 yrs old): No Family Medical History - Family History Mother Family History: Unknown Physical Exam - Physical Exam General Appearance: Alert, Comfortable, No apparent distress Eye Exam: bilateral normal Ears, Nose, Throat: hearing grossly normal, normal ENT inspection Neck: full range of motion, supple Respiratory: lungs clear, normal breath sounds, no respiratory distress, no accessory muscle use Cardiovascular/Chest: normal peripheral pulses, regular rate, rhythm, no edema Peripheral Pulses: radial,right: 2+, radial,left: 2+ Gastrointestinal/Abdominal: soft, other - Mild right upper quadrant discomfort to palpation. No definite palpable mass. No definite rebound. 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 Source of this is not entirely certain however laboratory work including blood work and urinalysis along with EKG and CT scan of the abdomen and pelvis are reassuring. Vital signs have remained stable. The patient does have some very significant hypomagnesemia which may be causing some abdominal cramping. She received 4 g of IV magnesium here. She is going to receive a prescription for magnesium oxide for the next couple weeks. She needs to follow-up with [facility] in a couple weeks for reevaluation of this. Other possibilities, given the location include a gastritis or duodenitis and early diverticulitis. The patient does take multiple medications that could result in a significant gastritis or duodenitis including an anti-inflammatory and her diabetes medications. The patient is going to be placed on 2 weeks of Carafate and Pepcid along with 7 days of oral Augmentin. The patient needs to maintain a bland diet. She needs to control her diabetes well. I would recommend that she follow-up with her primary care doctor in a couple of days for reevaluation. No other significant pathology has been found at this time. ER warnings are given. myra redding [phone] - Results/Orders Results/Orders: EKG shows very mild left axis deviation. LVH criteria are met. Normal sinus rhythm 89 bpm. Normal R wave progression. Normal QT interval. No definitive ST segment or T wave changes indicative of acute ischemia. Laboratory Results - last 24 hr 01/20/20 01/20/20 01/20/20 00:40 00:52 00:52 WBC 8.3 RBC 4.61 Hgb 11.8 L Hct 36.7 MCV 79.7 L MCH 25.7 L MCHC 32.3 L RDW 16.9 H Plt Count 261 MPV 8.1 Absolute Neuts (auto) 5.10 Absolute Lymphs (auto) 2.20 Absolute Monos (auto) 0.60 Absolute Eos (auto) 0.30 Absolute Basos (auto) 0.10 Neutrophils % 61.5 Lymphocytes % 27.0 Monocytes % 7.5 Eosinophils % 3.3 Basophils % 0.7 PT INR PTT (SP) Sodium 136 Potassium 3.8 Chloride 101 Carbon Dioxide 28 Anion Gap 10.8 L BUN 13 Creatinine 0.81 BUN/Creatinine Ratio 16.0 Random Glucose 126 H Serum Osmolality 273.6 L Lactic Acid Calcium 9.3 Magnesium 1.2 L Total Bilirubin 0.3 AST 15 ALT 11 Alkaline Phosphatase 63 Creatine Kinase 42 CK-MB (CK-2) 0.8 CK-MB (CK-2) % Not Reportable Troponin I < 0.02 B-Natriuretic Peptide 80.4 Serum Total Protein 7.4 Albumin 3.4 Globulin 4.0 H Albumin/Globulin Ratio 0.9 L Amylase 59 Lipase 38 Urine Color Yellow Urine Appearance Clear Urine pH 7.5 Ur Specific [place] 1.010 Urine Protein Negative Urine Glucose (UA) Negative Urine Ketones Negative Urine Blood Trace-intact H Urine Nitrite Negative Urine Bilirubin Negative Urine Urobilinogen 0.2 Ur Leukocyte Esterase Small H Urine RBC 0-1 Urine WBC 1-3 Ur Epithelial Cells 1-3 Urine Bacteria 0 01/20/20 01/20/20 00:52 00:52 WBC RBC Hgb Hct MCV MCH MCHC RDW Plt Count MPV Absolute Neuts (auto) Absolute Lymphs (auto) Absolute Monos (auto) Absolute Eos (auto) Absolute Basos (auto) Neutrophils % Lymphocytes % Monocytes % Eosinophils % Basophils % PT 9.4 INR < 1.00 PTT (SP) 24.9 Sodium Potassium Chloride Carbon Dioxide Anion Gap BUN Creatinine BUN/Creatinine Ratio Random Glucose Serum Osmolality Lactic Acid 1.0 Calcium Magnesium Total Bilirubin AST ALT Alkaline Phosphatase Creatine Kinase CK-MB (CK-2) CK-MB (CK-2) % Troponin I B-Natriuretic Peptide Serum Total Protein Albumin Globulin Albumin/Globulin Ratio Amylase Lipase Urine Color Urine Appearance Urine pH Ur Specific [place] Urine Protein Urine Glucose (UA) Urine Ketones Urine Blood Urine Nitrite Urine Bilirubin Urine Urobilinogen Ur Leukocyte Esterase Urine RBC Urine WBC Ur Epithelial Cells Urine Bacteria Departure - Departure Clinical Impression: Hypomagnesemia Abdominal pain Qualifiers: Abdominal location: right upper quadrant Qualified Code(s): R10.11 - Right upper quadrant pain Disposition: Discharge to Home or Self Care Condition: Fair Departure Forms: ED Discharge - Pt. Copy, Patient Portal Self Enrollment Instructions: Low Magnesium Level Diet: bland diet, diabetic diet Activity: increase activity as tolerated Referrals: Clem Montiel MD [Primary Care Provider] - 1-5 Days Prescriptions: Amoxicillin & Pot Clavulanate [Augmentin Tab] 875 mg PO BID #14 tab Famotidine 20 mg PO DAILY #30 tab Magnesium Oxide (mg Supplement [Magnesium Oxide] 400 mg PO BID #30 cap Sucralfate Tab [Carafate Tab] 1 gm PO QID #60 tab Home Medications: Ambulatory Orders Amlodipine Besylate 10 mg PO DAILY 12/24/16 Metformin HCl [Metformin Hydrochloride E] 1,000 mg PO BID 12/24/16 Omeprazole 20 mg PO DAILY 12/24/16 Potassium Chloride Microencaps [Klor-Con M20] 20 meq PO DAILY 12/24/16 Raloxifene HCl [Raloxifene Hydrochloride] 60 mg PO DAILY 12/24/16 SAXaglipitin [Onglyza] 5 mg PO DAILY 12/24/16 Benazepril HCl [Lotensin] 20 mg PO DAILY 07/14/18 Insulin Degludec [Tresiba Flextouch] 50 unit SC BEDTIME 07/14/18 HYDROcodone 5MG/APAP 325MG [Gregory 5/325] 1 - 2 ea PO Q4H PRN #40 tab 07/19/18 Amoxicillin & Pot Clavulanate [Augmentin Tab] 875 mg PO BID #14 tab 01/20/20 Celecoxib 200 mg PO BID 01/20/20 Famotidine 20 mg PO DAILY #30 tab 01/20/20 Magnesium Oxide (mg Supplement [Magnesium Oxide] 400 mg PO BID #30 cap 01/20/20 Semaglutide [Ozempic] 2 mg SC WKLY 01/20/20 Sucralfate Tab [Carafate Tab] 1 gm PO QID #60 tab 01/20/20 Additional Instructions: The patient is a 74-year-old female presenting to the emergency room secondary to right upper abdominal discomfort for the better part of the day. Source of this is not entirely certain however laboratory work including blood work and urinalysis along with EKG and CT scan of the abdomen and pelvis are reassuring. Vital signs have remained stable. The patient does have some very significant hypomagnesemia which may be causing some abdominal cramping. She received 4 g of IV magnesium here. She is going to receive a prescription for magnesium oxide for the next couple weeks. She needs to follow-up with her primary care doctor in a couple weeks for reevaluation of this. Other possibilities, given the location include a gastritis or duodenitis and early diverticulitis. The patient does take multiple medications that could result in a significant gastritis or duodenitis including an anti-inflammatory and her diabetes medications. The patient is going to be placed on 2 weeks of Carafate and Pepcid along with 7 days of oral Augmentin. The patient needs to maintain a bland diet. She needs to control her diabetes well. I would recommend that she follow-up with her primary care doctor in a couple of days for reevaluation. No other significant pathology has been found at this time. ER warnings are given.
[2020-01-20 05:02] VITALS: BP 124/76; TEMP 97.8; O2SAT 98
== END 2020-01-20 04:55 | disposition home or self-care (01) ==
LOC: ER 00:25
DX: E83.42 Hypomagnesemia (principal); R10.11 Right upper quadrant pain; I10 Essential (primary) hypertension; R11.2 Nausea with vomiting, unspecified
CPT/HCPCS: 74177; 80053; 81001; 82150; 82550; 82553; 83605; 83690; 83735; 83880; 84484; 85025; 85610; 85730; 87040; 87086; 93005; J2270; J2405; J3475; J7030

== ENCOUNTER → 2020-09-09 | Outpatient (CLI) | payer MEDICARE ==
--- NOTE | 2020-09-12 10:28 | MAM ---
EXAM DESCRIPTION: 3D Screening BILATERAL : Digital Mammography. CLINICAL HISTORY: 75 years Female SCREENING . Left breast cancer June 2017 with mastectomy. No family history of breast cancer. Menarche age 10. Childbirth Age 17. Menopause age 40. No HRT.. Lifetime risk of developing breast cancer (Tyrer-Cuzick model)(%): Calculated due to personal history of breast cancer. COMPARISON: Right breast screening digital tomosynthesis June 2019 and April 2018 TECHNIQUE: Right breast CC and MLO projection full-field images, digital tomosynthesis mammographic technique right digital 2-D full-field MLO images. CAD available for 2-D images. FINDINGS: Right breast parenchymal density pattern is: Scattered areas of fibroglandular density. Axillary nodes. Vascular calcifications. VAD access port overlying the mid posterior breast. Solitary microcalcifications. No skin thickening or nipple retraction No new focal, stellate mass or density, focal asymmetry , and no suspicious microcalcifications right breast. Stable mammograms compared to prior study. IMPRESSION: Benign exam. BIRAD CATEGORY: 2 BENIGN FINDINGS. RECOMMENDATIONS: FOLLOW UP: Routine digital bilateral mammographic screening, one year interval from September 2020. Written communication explaining the IMPRESSION and follow-up, will be mailed to the patient and referring health care provider. According to the [employer], yearly mammograms are recommended starting at age 40 and continuing as long as a woman is in good health. Any breast change noted on a breast self-exam should be reported promptly to the patient's healthcare provider. Breast MRI is recommended for women with an approximately 20-25% or greater lifetime risk of breast cancer, including women with a strong family history of breast or ovarian cancer and women who have been treated for Hodgkin's disease. A negative mammographic report should not delay tissue diagnosis in patients with significant clinical history or physical findings. Extremely dense breast tissue limits the sensitivity of digital mammography. Electronically signed by: Yuval Natarajan MD 09/12/2020 10:26 AM FIELD SUPERVISOR
== END ==
LOC: MAMMO 13:23
PROVIDERS: ATTEND Nurse Practitioner Family
DX: Z12.31 Encounter for screening mammogram for malignant neoplasm of breast (principal)